=== PATIENT | female | born 1975 ===

== ENCOUNTER 2021-03-24 09:42 | Outpatient (REF) | payer OTHER, SELFPAY ==
[2021-03-24 10:30] LABS: MANUAL DIFF FLAG SCAN; SCAN SMEAR FLAG 1
[2021-03-24 10:32] LABS: Basophils Absolute Auto 0.1 X10*3/uL (0.0-0.2); Basophils Percent Auto 0.7 % (0-2); Eosinophils Absolute Auto 0.1 X10*3/uL (0.0-0.4); Eosinophils Percent Auto 0.7 % (0-4); Hematocrit 40.6 % (37-47); Hemoglobin 13.6 g/dl (12.0-16.0); Imm Gran Abs Auto 0.16 X10*3/uL (0.00-0.03); Imm Gran Pct Auto 1.6 % (0.0-0.4); Lymphocytes Absolute Auto 2.6 X10*3/uL (1.2-4.9); Lymphocytes Percent Auto 25.4 % (20-40); Mean Corpuscular HGB Conc 33.5 g/dl (31.0-35.0); Mean Corpuscular Hemoglobin 29.1 pg (27.0-33.0); Mean Corpuscular Volume 86.9 fL (80-98); Mean Platelet Volume 13.2 fL (9.4-12.3); Monocytes Absolute Auto 0.7 X10*3/uL (0.1-1.2); Monocytes Percent Auto 6.8 % (2-11); Neutrophils Absolute Auto 6.7 X10*3/uL (2.0-8.3); Neutrophils Percent Auto 64.8 % (45-73); Platelet Count 247 X10*3/uL (160-400); Red Blood Count 4.67 X10*6/uL (4.20-5.50); Red Cell Distribution Width 13.3 % (11.0-16.0); White Blood Count 10.3 X10*3/uL (4.8-10.8)
[2021-03-24 10:34] LABS: PLT ABN DIST 1
[2021-03-24 10:35] LABS: Alanine Aminotransferase 15 U/L (0-31); Albumin Level 4.3 g/dL (3.5-5.0); Alkaline Phosphatase 70 U/L (39-117); Anion Gap 12 (12-20); Aspartate Amino Transferase 12 U/L (5-31); Bilirubin Total 0.5 mg/dL (0.0-1.0); Blood Urea Nitrogen 11 mg/dL (9-16); Calcium 9.3 mg/dL (8.4-10.2); Carbon Dioxide 22 mmol/L (22-29); Chloride 107 mmol/L (96-108); Cholesterol 211 mg/dL; Estimated Glomerular Filt Rate > 60; Glucose Random 114 mg/dL (60-115); HDL Cholesterol 45 mg/dL; LDL Cholesterol Calculated 137 mg/dl; Potassium 4.4 mmol/L (3.3-5.1); Sodium 137 mmol/L (135-145); Total Protein 6.8 g/dL (6.5-8.0); Triglycerides 148 mg/dL
[2021-03-24 10:59] LABS: Free T4 (Free Thyroxine) 0.97 ng/dL (0.71-1.85); Thyroid Stimulating Hormone 1.09 uIU/mL (0.32-4.0); Vitamin D 25-OH Total 13.8 ng/mL (>30)
[2021-03-24 11:23] LABS: SLIDE REVIEW VERIFIED
[2021-03-26 04:26] LABS: Folate 13.5 ng/mL (> or = 4.0); Vitamin B12 220 pg/mL (200-900)
== END 2021-03-24 09:43 | disposition home or self-care (01) ==
LOC: HO.LAB 09:42
PROVIDERS: PCP Internal Medicine; Visit Provider Internal Medicine
DX: E78.00 Pure hypercholesterolemia, unspecified (principal)
CPT/HCPCS: 36415; 80053; 80061; 82306; 82607; 82746; 84439; 84443; 85025

== ENCOUNTER 2021-07-12 14:44 | Outpatient (REF) | payer OTHER, SELFPAY ==
--- NOTE | ~2021-07-12 | XR_ITS ---
EXAMINATION: XR FOOT, RIGHT CLINICAL INFORMATION: M79.89 - Other specified soft tissue disorders COMPARISON: None TECHNIQUE: AP, lateral, and oblique views of the right foot. FINDINGS: There is a small focal convexity to the dorsomedial soft tissues adjacent to the first metatarsal head. The area of convexity is under 1 cm. There is no soft tissue mineralization or visible soft tissue lesion on plain film. The underlying bone appears intact. There is no fracture or dislocation or exostosis. No focal joint narrowing or erosive changes. Bony mineralization appears normal. There are small posterior and plantar calcaneal spurs. XR/XR foot RT 2V IMPRESSION: 1. Small focal soft tissue convexity adjacent to dorsomedial first metatarsal head. No associated bony abnormality. No soft tissue mineralization. 2. Small posterior and plantar calcaneal spurs.
== END 2021-07-12 14:45 | disposition home or self-care (01) ==
LOC: HO.XRAY 14:44
PROVIDERS: PCP Internal Medicine; Visit Provider Internal Medicine
DX: M79.89 Other specified soft tissue disorders (principal)
CPT/HCPCS: 73620

== ENCOUNTER → 2021-09-03 09:05 | Outpatient (BNVA) | payer OTHER, SELFPAY | PROVIDERS: PCP Internal Medicine; Referring Provider Internal Medicine; Visit Provider Physician Assistant | DX: Z13.89 Encounter for screening for other disorder (principal) ==

== ENCOUNTER 2022-01-17 15:07 | Emergency (ER) | payer OTHER, SELFPAY ==
[2022-01-17 16:40] VITALS: BP 157/85; PULSE 100; RESP 18; TEMP 36.7; O2SAT 97; BMI 32.4
[2022-01-17 16:58] LABS: MANUAL DIFF FLAG NO
[2022-01-17 17:02] LABS: Basophils Absolute Auto 0.1 X10*3/uL (0.0-0.2); Basophils Percent Auto 0.5 % (0-2); Eosinophils Absolute Auto 0.1 X10*3/uL (0.0-0.4); Hematocrit 40.4 % (37.0-47.0); Hemoglobin 13.8 g/dl (12.0-16.0); Imm Gran Abs Auto 0.09 X10*3/uL (0.00-0.03); Imm Gran Pct Auto 0.8 % (0.0-0.4); Lymphocytes Percent Auto 26.8 % (20-40); Mean Corpuscular HGB Conc 34.2 g/dl (31.0-35.0); Mean Corpuscular Hemoglobin 29.2 pg (27.0-33.0); Mean Corpuscular Volume 85.6 fL (80.0-98.0); Mean Platelet Volume 12.7 fL (9.4-12.3); Monocytes Absolute Auto 0.7 X10*3/uL (0.1-1.2); Monocytes Percent Auto 6.5 % (2-11); Neutrophils Absolute Auto 7.1 x10*3/uL (2.0-8.3); Neutrophils Percent Auto 64.4 % (45-73); Platelet Count 273 X10*3/uL (160-400); Red Blood Count 4.72 X10*6/uL (4.20-5.50); Red Cell Distribution Width 13.4 % (11.0-16.0)
[2022-01-17 17:21] LABS: Anion Gap 14 (12-20); Blood Urea Nitrogen 7 mg/dL (9-16); Calcium 9.5 mg/dL (8.4-10.2); Carbon Dioxide 19 mmol/L (22-29); Chloride 108 mmol/L (96-108); Creatinine Clr Calc Pharmacy 83.8; Estimated Glomerular Filt Rate > 60; Glucose Random 188 mg/dL (60-115); Sodium 137 mmol/L (135-145)
== END 2022-01-17 22:26 | disposition left against medical advice (07) ==
LOC: HO.ED 22:18
PROVIDERS: Emergency Provider Emergency Medicine; PCP Internal Medicine
DX: M79.605 Pain in left leg (principal); M79.604 Pain in right leg; R60.0 Localized edema; R20.0 Anesthesia of skin; Z79.899 Other long term (current) drug therapy
CPT/HCPCS: 36415; 80048; 85025; 99281; 99283

== ENCOUNTER 2022-01-23 10:44 | Outpatient (REF) | payer OTHER, SELFPAY ==
--- NOTE | ~2022-01-23 | XR_ITS ---
EXAMINATION: XR HIP, LEFT CLINICAL INFORMATION: Pain in left hip. COMPARISON: None TECHNIQUE: Two views of the left hip. FINDINGS: No fracture, dislocation, or destructive process. Normal bony mineralization. No joint narrowing or erosive change or chondrocalcinosis. SI joint and pubis are unremarkable. There is minor lateral spurring from the iliac crest. Soft tissue planes unremarkable. XR/XR hip LT min 2V IMPRESSION: Normal left hip.
== END 2022-01-23 10:45 | disposition home or self-care (01) ==
LOC: HO.XRAY 10:44
PROVIDERS: PCP Internal Medicine; Visit Provider Internal Medicine
DX: M25.552 Pain in left hip (principal)
CPT/HCPCS: 73502

== ENCOUNTER 2022-01-26 08:51 | Outpatient (REF) | payer OTHER, SELFPAY ==
[2022-01-26 09:24] LABS: Appearance Urine CLEAR; Color Urine STRAW; Glucose Urine UA NEG (NEG); Leukocyte Esterase Urine NEG (NEG); Nitrite Urine NEG (NEG); PH 5.5 (5.0-8.0); Urine Blood NEG (NEG); Urine Ketones NEG (NEG); Urine Protein NEG (NEG-TRACE)
[2022-01-26 09:32] LABS: Alanine Aminotransferase 44 U/L (0-31); Albumin Level 4.5 g/dL (3.5-5.0); Alkaline Phosphatase 70 U/L (39-117); Anion Gap 16 (12-20); Aspartate Amino Transferase 28 U/L (5-31); Bilirubin Total 0.5 mg/dL (0.0-1.0); Blood Urea Nitrogen 10 mg/dL (9-16); Calcium 9.6 mg/dL (8.4-10.2); Carbon Dioxide 22 mmol/L (22-29); Chloride 106 mmol/L (96-108); Cholesterol 272 mg/dL; Estimated Glomerular Filt Rate > 60; Glucose Random 99 mg/dL (60-115); HDL Cholesterol 51 mg/dL; LDL Cholesterol Calculated 199 mg/dl; Sodium 139 mmol/L (135-145); Total Protein 7.5 g/dL (6.5-8.0); Triglycerides 110 mg/dL
[2022-01-26 09:54] LABS: Free T4 (Free Thyroxine) 0.98 ng/dL (0.71-1.85); Thyroid Stimulating Hormone 0.81 uIU/mL (0.32-4.0)
[2022-01-28 08:26] LABS: Folate 10.6 ng/mL (> or = 4.0); Vitamin B12 762 pg/mL (200-900)
== END 2022-01-26 08:52 | disposition home or self-care (01) ==
LOC: HO.LAB 08:51
PROVIDERS: PCP Internal Medicine; Visit Provider Internal Medicine
DX: M25.552 Pain in left hip (principal); E78.00 Pure hypercholesterolemia, unspecified
CPT/HCPCS: 36415; 80053; 80061; 81003; 82607; 82746; 84439; 84443

== ENCOUNTER → 2022-02-11 13:02 | Outpatient (REF) | payer OTHER, SELFPAY ==
--- NOTE | 2022-02-11 13:07 | ECG_ITS ---
Test Reason : palpitations Blood Pressure : / mmHG Vent. Rate : 077 BPM Atrial Rate : 077 BPM P-R Int : 130 ms QRS Dur : 086 ms QT Int : 392 ms P-R-T Axes : 043 053 020 degrees QTc Int : 443 ms Normal sinus rhythm Minimal voltage criteria for LVH, may be normal variant ( Sokolow-Hui ) Nonspecific ST abnormality Abnormal ECG No previous ECGs available Referred By: Bj Mane Electronically Signed By:DARLENE DURHAM
== END ==
LOC: HO.CARD 13:02
PROVIDERS: PCP Internal Medicine; Visit Provider Internal Medicine
DX: R00.2 Palpitations (principal)
CPT/HCPCS: 93005

== ENCOUNTER 2022-02-20 13:45 | Outpatient (REF) | payer OTHER, SELFPAY ==
--- NOTE | ~2022-02-20 | US_ITS ---
EXAMINATION: US EXTRACRANIAL CAROTID DUPLEX, BILATERAL CLINICAL INFORMATION: Transient cerebral ischemic attack. Hypertension. Hyperlipidemia. COMPARISON: None TECHNIQUE: Real-time ultrasound and Doppler techniques (integrating B-mode 2-D vascular images, Doppler spectral analysis and color-flow Doppler imaging) were utilized to interrogate the extracranial carotid arteries, the vertebral arteries and proximal subclavian arteries bilaterally. The degree of stenosis is determined by criteria similar to NASCET. FINDINGS: Right Side: 1. There is no atherosclerotic plaque seen in the bifurcation/proximal ICA region. 2. The common carotid artery PSV proximally is 91 cm/s and distally 78 cm/s. 3. The proximal internal carotid artery velocities are 77 cm/s systolic and 19 cm/s diastolic. 4. The proximal external carotid artery PSV is 84 cm/s. 5. The vertebral artery shows antegrade flow. 6. The subclavian artery waveforms are normal. Left Side: 1. There is no atherosclerotic plaque seen in the bifurcation/proximal ICA region. 2. The common carotid artery PSV proximally is 103 cm/s and distally 84 cm/s. 3. The proximal internal carotid artery velocities are 69 cm/s systolic and 22 cm/s diastolic. 4. The proximal external carotid artery PSV is 85 cm/s. 5. The vertebral artery shows antegrade flow. 6. The subclavian artery waveforms are normal. US/US carotid duplex BI IMPRESSION: 1. RIGHT: Normal right internal carotid artery without atherosclerotic plaque or hemodynamically significant stenosis. 2. LEFT: Normal left internal carotid artery without atherosclerotic plaque or hemodynamically significant stenosis.
== END 2022-02-20 13:46 | disposition home or self-care (01) ==
LOC: HO.HMGCX 13:45
PROVIDERS: PCP Internal Medicine; Visit Provider Internal Medicine
DX: G45.9 Transient cerebral ischemic attack, unspecified (principal)
CPT/HCPCS: 93880

== ENCOUNTER 2022-03-22 07:29 | Day surgery (SDC) | payer OTHER, SELFPAY ==
[2022-03-18 15:10] VITALS: BMI 32.4
--- NOTE | 2022-03-21 10:58 | HO.ANESPROP2 ---
Documented by User: Cecy Yin NP 03/21/22 11:02 HPI - Anesthesia Eval Consult details Narrative: 47yo F for Colonoscopy PMFSH Active Problems Active Problems: All Active Problems (Updated 03/18/22 @ 15:07 by Carmen Fischer RN) Obesity (BMI 30-39.9) (Acute) Constipation (Acute) Colon cancer screening (Acute) Impaired glucose tolerance (Acute) Vitamin B12 deficiency (Acute) Vitamin D deficiency (Acute) Swelling of toe of right foot (Acute) Hip pain, left (Acute) Frequency of micturition (Acute) Migraine (Acute) LFT elevation (Acute) Hypertension (Acute) Reactive airway disease (Acute) Hypercholesterolemia (Acute) Endometriosis (Acute) Past Medical History Medical History (Updated 03/18/22 @ 15:07 by Carmen Fischer RN) Annual physical exam Blood pressure elevated without history of HTN COVID-19 virus infection Endometriosis Hypercholesterolemia Palpitations Reactive airway disease TIA (transient ischemic attack) Family History Family History Mother No problems noted. Father No problems noted. Sister No problems noted. Sister No problems noted. Sister No problems noted. Sister No problems noted. Brother No problems noted. Son No problems noted. Son No problems noted. Daughter No problems noted. Paternal Grandmother Myocardial infarct Paternal Aunt Colon cancer Breast cancer Paternal Uncle Substance abuse Surgical History Surgical History H/O tubal ligation History of ear surgery History of tonsillectomy Social History Social History Housing: House Alcohol intake: current Alcohol intake frequency: holidays/special occasions only Patient Tobacco Use Status: Never used Tobacco e-Cigarette/Vaping Use: Never Used Second Hand Smoke Exposure: No Use of substances other than those prescribed or required for medical reasons: No Are you DNR?: No Advance Directives: No Advance Directives Information Provided: Yes service: No Current occupational status: employed Cognitive needs: No Hearing needs: No Vision needs: Yes Meds Allergies Allergy/AdvReac Type Severity Reaction Status Date / Time Bleach (Sodium Hypochlorite) Allergy Severe Anaphylaxis Verified 03/13/22 11:05 latex Allergy Intermediate Rash Verified 03/13/22 11:05 peanut Allergy Intermediate Rash Verified 03/13/22 11:05 Home Medications Medication Instructions Recorded Confirmed Last Taken Type norethindrone acetate 1.5 1 tab PO DAILY 03/15/21 03/18/22 Unknown History mg-ethinyl estradiol 30 mcg tablet (Junel) cholecalciferol (vitamin D3) 50 50 mcg PO DAILY 09/03/21 03/18/22 Unknown History mcg (2,000 unit) capsule mecobalamin (vitamin B12) 5,000 5,000 mcg PO DAILY 09/03/21 03/18/22 Unknown History mcg lozenge ropinirole 0.25 mg tablet 0.25 mg PO BEDTIME 03/13/22 03/18/22 Unknown History sumatriptan succinate 50 mg tablet 50 mg PO Q2-4H PRN Migraine 03/13/22 03/18/22 Unknown History Headache Exam Exam Date and Time: March 21, 2022 1058 Height,Weight and Vital Signs: Height 5 ft Weight 75.296 kg Pertinent Lab Results Pertinent Lab Results: Laboratory Tests 01/17/22 01/26/22 16:54 08:59 WBC 11.0 H Hgb 13.8 Hct 40.4 Plt Count 273 Sodium 139 Potassium 5.0 D Chloride 106 Carbon Dioxide 22 BUN 10 Creatinine 0.72 Assessment and Plan Assessment Anesthesia Assessment: Chart Reviewed Documented by User: Bekah Lea MD 03/22/22 08:27 [facility] Past Medical History Medical History (Updated 03/18/22 @ 15:07 by Carmen Fischer RN) Annual physical exam Blood pressure elevated without history of HTN COVID-19 virus infection Endometriosis Hypercholesterolemia Palpitations Reactive airway disease TIA (transient ischemic attack) Family History Family History Mother No problems noted. Father No problems noted. Sister No problems noted. Sister No problems noted. Sister No problems noted. Sister No problems noted. Brother No problems noted. Son No problems noted. Son No problems noted. Daughter No problems noted. Paternal Grandmother Myocardial infarct Paternal Aunt Colon cancer Breast cancer Paternal Uncle Substance abuse Family history of problems with anesthesia: No Surgical History Surgical History H/O tubal ligation History of ear surgery History of tonsillectomy History of Problems with Anesthesia: No Social History Social History Housing: House Alcohol intake: current Alcohol intake frequency: holidays/special occasions only Patient Tobacco Use Status: Never used Tobacco e-Cigarette/Vaping Use: Never Used Second Hand Smoke Exposure: No Use of substances other than those prescribed or required for medical reasons: No Are you DNR?: No Advance Directives: No Advance Directives Information Provided: Yes service: No Current occupational status: employed Cognitive needs: No Hearing needs: No Vision needs: Yes Meds Allergies Allergy/AdvReac Type Severity Reaction Status Date / Time Bleach (Sodium Hypochlorite) Allergy Severe Anaphylaxis Verified 03/13/22 11:05 latex Allergy Intermediate Rash Verified 03/13/22 11:05 peanut Allergy Intermediate Rash Verified 03/13/22 11:05 Home Medications Medication Instructions Recorded Confirmed Last Taken Type norethindrone acetate 1.5 1 tab PO DAILY 03/15/21 03/18/22 Unknown History mg-ethinyl estradiol 30 mcg tablet (Junel) cholecalciferol (vitamin D3) 50 50 mcg PO DAILY 09/03/21 03/18/22 Unknown History mcg (2,000 unit) capsule mecobalamin (vitamin B12) 5,000 5,000 mcg PO DAILY 09/03/21 03/18/22 Unknown History mcg lozenge ropinirole 0.25 mg tablet 0.25 mg PO BEDTIME 03/13/22 03/18/22 Unknown History sumatriptan succinate 50 mg tablet 50 mg PO Q2-4H PRN Migraine 03/13/22 03/18/22 Unknown History Headache Exam Airway Mallampati Class: III TM Dist: >3cm Neck ROM: Full Heart: rrr Lungs: cta Assessment and Plan Assessment Anesthesia Assessment: Anesthesia Plan Discussed and Chart Reviewed Final Anesthetic Review Family History of Problems with Anesthesia: No History of Problems with Anesthesia: No NPO: Yes ASA Class: II Final Preanesthetic Review: No Changes in Pt Med Stat, Meds/Allgs Chart Reviewed and Consent Obtained/Reviewed Patient Risk: Intermediate Procedure Risk: Intermediate Anesthetic Plan Anesthetic Plan: MAC: Disposition: Standard PACU
--- NOTE | 2022-03-22 07:22 | MHC.SHP ---
Pre-Procedural Eval Section A Date of Service: 03/22/22 The patient is an INPATIENT: No The History & Physical has been completed within 30 days and I have reviewed it.: No Section B Chief Complaint: screening Details of Present Illness: Colon cancer screen, family history of colon cancer Relevant Family History (Specify if Yes): Yes Relevant Social History: None Present Medications: see Short Stay Collaborative assessment Medical History: Significant History (COVID-19 virus infection Endometriosis Hypercholesterolemia Reactive airway disease) History of Previous Operations: Relevant previous surgery/procedure and date(s) (H/O tubal ligation History of ear surgery History of tonsillectomy) Allergies: Allergies Allergy/AdvReac Type Severity Reaction Status Date / Time Bleach (Sodium Hypochlorite) Allergy Severe Anaphylaxis Verified 03/13/22 11:05 latex Allergy Intermediate Rash Verified 03/13/22 11:05 peanut Allergy Intermediate Rash Verified 03/13/22 11:05 Review of Systems Sugical H&P ROS: Negative: Constitution, Cardiovascular, Respiratory and Gastrointestinal Exam Surgical H&P Exam: Normal: Heart, Normal: Lungs, Normal: Extremities and Normal: Abdomen Plan Diagnosis/Plan: Unchanged I have reviewed the history and physical and performed a pertinent physical examination on my patient. No changes have occurred unless specified.
[2022-03-22 07:50] VITALS: BP 150/78; PULSE 63; RESP 16; TEMP 36.3; O2SAT 98
[2022-03-22] MEDS: Lactated Ringers 1,000 ML 100 ML IVCONT (07:57)
--- NOTE | 2022-03-22 08:33 | PM.OP ---
Brief Operative Note Date of Service: 03/22/22 Pre-op diagnosis: Colon cancer screening, family history of colon cancer - maternal aunt in her 50s Post-op diagnosis: other (Colon polyps, diverticulosis) Procedure: COLONOSCOPY TILL CECUM WITH BIOPSIES AND SNARE POLYPECTOMY Consent: Indications for the procedure and potential complications of bleeding, perforation, reaction to medications and missed diagnosis were discussed with the patient and informed consent was obtained. Instrument: Olympus PCF H 190 L variable stiffness pediatric colonoscope Monitoring: Vital signs and clinical assessment, intermittent blood pressure monitoring, continuous EKG monitoring, Pulse oximetry and Carbon Dioxide monitoring were done throughout the procedure. Colon withdrawl time was 13 minutes. Procedure: The patient was placed in the left lateral decubitis position and pre-procedure medications were administered. After a digital rectal examination of the ano-rectum, the video colonoscope was inserted into the rectum and advanced through the colon to the cecum. The colonoscope was slowly withdrawn in a retrograde panoramic fashion and the colon mucosa was carefully examined including a retroflexed view of the rectum. Findings and interventions are described below. Procedure Difficulty: Without difficulty Findings: Terminal Ileum: Not evaluated Cecum: Normal Ascending Colon: A 7-8 mm sessile polyp in the proximal AC - removed with an cold snare Transverse Colon: A 4-5 mm sessile polyp in the proximal TC removed with a cold bx. Descending Colon: Normal Sigmoid Colon: Moderate diverticulosis Rectum: Normal Ano-rectum: Normal Colon preparation: Good Impression and Post Procedure Diagnosis: Colonoscopy Findings: Two small polyps removed Moderate diverticulosis seen in the sigmoid colon Plan: Pt will be sent a letter with pathology results Repeat Colonoscopy interval based on path results - in 5 years if polyps are adenomatous and 10 years if polyps are hyperplastic. Above findings were reviewed with the patient and colon polyps and diverticulosis handouts were given in the discharge area Surgeon: Sailaja Kennedy MD Anesthesia: MAC (Dr Tobin) Was an Information Security Associate used for this Procedure?: No Information Security Associate: Caitlin Khanna Estimated blood loss (mL): 0 Pathology: other ( A. ascending colon polyp B. right colon bxs, R/O microscopic colitis C. transverse colon polyp D. left colon bxs, R/O microscopic colitis) Condition: stable Disposition: PACU
[2022-03-22 09:00] VITALS: BP 111/56; PULSE 63; RESP 16; TEMP 36.2; O2SAT 99
--- NOTE | 2022-03-22 09:02 | P.OP_ITS ---
Operative Note Operative Note Date of Service: 03/22/22 Narrative: Pre-op diagnosis: Colon cancer screening, family history of colon cancer - maternal aunt in her 50s Post-op diagnosis:?other (Colon polyps, diverticulosis) Procedure: COLONOSCOPY TILL CECUM WITH BIOPSIES AND SNARE POLYPECTOMY Consent: Indications for the procedure and potential complications of bleeding, perforation, reaction to medications and missed diagnosis were discussed with the patient and informed consent was obtained. Instrument: Olympus PCF H 190 L variable stiffness pediatric colonoscope Monitoring: Vital signs and clinical assessment, intermittent blood pressure monitoring, continuous EKG monitoring, Pulse oximetry and Carbon Dioxide monitoring were done throughout the procedure. Colon withdrawl time was 13 minutes. Procedure: The patient was placed in the left lateral decubitis position and pre-procedure medications were administered. After a digital rectal examination of the ano-rectum, the video colonoscope was inserted into the rectum and advanced through the colon to the cecum. The colonoscope was slowly withdrawn in a retrograde panoramic fashion and the colon mucosa was carefully examined including a retroflexed view of the rectum. Findings and interventions are described below. Procedure Difficulty: Without difficulty Findings: Terminal Ileum: Not evaluated Cecum:? Normal Ascending Colon:? A 7-8 mm sessile polyp in the proximal AC - removed with an cold snare Transverse Colon:? A 4-5 mm sessile polyp in the proximal TC removed with a cold bx. Descending Colon:? Normal Sigmoid Colon:? Moderate diverticulosis Rectum:? Normal Ano-rectum:? Normal Colon preparation:? Good? Impression and Post Procedure Diagnosis: Colonoscopy Findings: Two small polyps removed Moderate diverticulosis seen in the sigmoid colon Plan: Pt will be sent a letter with pathology results Repeat Colonoscopy interval based on path results - in 5 years if polyps are adenomatous and due to family hx of colon cancer.. Above findings were reviewed with the patient and colon polyps and diverticulosis handouts were given in the discharge area Surgeon: Sailaja Kennedy MD Anesthesia:?MAC (Dr Tobin) Was an Vehicle Glass Technician used for this Procedure?:?No Vehicle Glass Technician:?Caitlin Khanna Estimated blood loss (mL):?0 Pathology:?other ( A. ascending colon polyp? B. right colon bxs, R/O microscopic colitis? C. transverse colon polyp? D. left colon bxs, R/O microscopic colitis) Condition:?stable Disposition:?PACU
[2022-03-22 09:15] VITALS: BP 119/74; PULSE 67; RESP 16; TEMP 36.2; O2SAT 100
== END 2022-03-22 09:15 | disposition home or self-care (01) ==
PROVIDERS: PCP Internal Medicine; Visit Provider Internal Medicine Gastroenterology
PROC: 0DJD8ZZ Inspection of Lower Intestinal Tract, Via Natural or Artificial Opening Endoscopic (ICD-10-PCS; CPT 45378; principal; 2022-03-22 08:30)
DX: Z12.11 Encounter for screening for malignant neoplasm of colon (principal); D12.3 Benign neoplasm of transverse colon; K63.5 Polyp of colon; K57.30 Diverticulosis of large intestine without perforation or abscess without bleeding; R19.7 Diarrhea, unspecified; E78.00 Pure hypercholesterolemia, unspecified; Z79.899 Other long term (current) drug therapy; J45.998 Other asthma; Z91.048 Other nonmedicinal substance allergy status; Z91.040 Latex allergy status; Z86.16 Personal history of COVID-19
CPT/HCPCS: 45385; 45380; 88305

== ENCOUNTER 2022-06-29 09:50 | Outpatient (REF) | payer OTHER, SELFPAY ==
[2022-06-29 11:35] LABS: Alanine Aminotransferase 31 U/L (0-31); Albumin Level 4.4 g/dL (3.5-5.0); Alkaline Phosphatase 82 U/L (39-117); Anion Gap 14 (12-20); Aspartate Amino Transferase 21 U/L (5-31); Bilirubin Total 0.5 mg/dL (0.0-1.0); Blood Urea Nitrogen 15 mg/dL (9-16); Calcium 9.5 mg/dL (8.4-10.2); Carbon Dioxide 24 mmol/L (22-29); Chloride 108 mmol/L (96-108); Cholesterol 240 mg/dL; Estimated Glomerular Filt Rate > 60; Glucose Random 109 mg/dL (60-115); HDL Cholesterol 43 mg/dL; LDL Cholesterol Calculated 181 mg/dl; Potassium 4.8 mmol/L (3.3-5.1); Sodium 141 mmol/L (135-145); Total Protein 7.1 g/dL (6.5-8.0); Triglycerides 82 mg/dL
[2022-07-01 09:35] LABS: HBS Num1 89.48 mIU/mL (0-7.99); HBsAGNum1 0.46 S/CO (0.00-0.99); Hepatitis B Core Antibody Nonreactive (Nonreactive); Hepatitis B Surface Antigen Negative (Negative); ~HepC Num1 0.06 S/CO (0.00-0.79); ~Hepatitis B Surface Antibody REACTIVE (Nonreactive); ~Hepatitis C Antibody Nonreactive (Nonreactive)
== END 2022-06-29 09:51 | disposition home or self-care (01) ==
LOC: HO.LAB 09:50
PROVIDERS: Visit Provider Internal Medicine
DX: E78.00 Pure hypercholesterolemia, unspecified (principal); R79.89 Other specified abnormal findings of blood chemistry
CPT/HCPCS: 36415; 80053; 80061; 86704; 86706; 86803; 87340

== ENCOUNTER 2022-11-04 11:43 | Outpatient (REF) | payer OTHER, SELFPAY ==
[2022-11-04 13:03] LABS: Appearance Urine Cloudy; Color Urine Yellow; Glucose Urine UA Negative (Negative); Leukocyte Esterase Urine Large (3+) (Negative); Nitrite Urine Negative (Negative); PH 6.5 (5.0-9.0); UMIC TRIGGER UACC YES; Urine Blood Large (3+) (Negative); Urine Ketones Negative (Negative); Urine Protein Trace mg/dL (Neg-Trace)
[2022-11-04 13:07] LABS: Bacteria Urine Trace (None Seen); Hyaline Casts Urine 0-2 /LPF (0-2); RBC Urine >20 /HPF (0-2); UACC Culture Trigger YES; WBC Urine >50 /HPF (0-5)
== END 2022-11-04 11:44 | disposition home or self-care (01) ==
LOC: HO.LAB 11:43
PROVIDERS: PCP Internal Medicine; Visit Provider Internal Medicine
DX: R82.90 Unspecified abnormal findings in urine (principal)
CPT/HCPCS: 81001; 81003; 87086

== ENCOUNTER 2022-11-13 09:08 | Outpatient (REF) | payer OTHER, SELFPAY ==
[2022-11-13 09:31] LABS: MANUAL DIFF FLAG NO
[2022-11-13 09:47] LABS: Basophils Absolute Auto 0.1 X10*3/uL (0.0-0.2); Basophils Percent Auto 1.2 % (0-2); Eosinophils Absolute Auto 0.2 X10*3/uL (0.0-0.4); Eosinophils Percent Auto 1.6 % (0-4); Imm Gran Abs Auto 0.11 X10*3/uL (0.00-0.03); Imm Gran Pct Auto 1.2 % (0.0-0.4); Immature Retic Fraction 9.3 % (3.0-15.9); Lymphocytes Absolute Auto 2.5 X10*3/uL (1.2-4.9); Lymphocytes Percent Auto 26.6 % (20-40); Mean Corpuscular HGB Conc 33.3 g/dl (31.0-35.0); Mean Corpuscular Hemoglobin 29.2 pg (27.0-33.0); Mean Corpuscular Volume 87.5 fL (80.0-98.0); Mean Platelet Volume 12.7 fL (9.4-12.3); Monocytes Absolute Auto 0.8 X10*3/uL (0.1-1.2); Monocytes Percent Auto 8.3 % (2-11); Neutrophils Absolute Auto 5.7 x10*3/uL (2.0-8.3); Neutrophils Percent Auto 61.1 % (45-73); Platelet Count 254 X10*3/uL (160-400); Red Cell Distribution Width 13.1 % (11.0-16.0); Retic HGB Equivalent 33.8 pg (30.0-35.0); Reticulocyte Percent 2.1 % (0.5-1.8); Reticulocytes Absolute 0.101 X10*6/uL (0.026-0.095); White Blood Count 9.4 X10*3/uL (4.8-10.8)
[2022-11-13 10:33] LABS: Alanine Aminotransferase 58 U/L (0-31); Albumin Level 4.4 g/dL (3.5-5.0); Alkaline Phosphatase 95 U/L (39-117); Anion Gap 14 (12-20); Aspartate Amino Transferase 28 U/L (5-31); Bilirubin Total 0.7 mg/dL (0.0-1.0); Blood Urea Nitrogen 9 mg/dL (9-16); Calcium 9.8 mg/dL (8.4-10.2); Carbon Dioxide 23 mmol/L (22-29); Chloride 105 mmol/L (96-108); Estimated Glomerular Filt Rate > 60; Glucose Random 120 mg/dL (60-115); Iron 129 mcg/dL (30-160); Percent Iron Saturation 40 % (15-50); Sodium 137 mmol/L (135-145); Total Iron Binding Capacity 326 mcg/dL (228-428); Total Protein 7.3 g/dL (6.5-8.0); Unsaturated Iron Binding 197 ug/dL
[2022-11-13 11:05] LABS: Ferritin 191 ng/mL (10-250); Folate 12.1 ng/mL (> or = 4.0); Vitamin B12 532 pg/mL (200-900)
== END 2022-11-13 09:09 | disposition home or self-care (01) ==
LOC: HO.LAB 09:08
PROVIDERS: PCP Internal Medicine; Visit Provider Internal Medicine
DX: D64.9 Anemia, unspecified (principal); Z90.710 Acquired absence of both cervix and uterus
CPT/HCPCS: 36415; 80053; 82607; 82728; 82746; 83540; 85025; 85045

== ENCOUNTER 2022-12-17 11:59 | Outpatient (REF) | payer OTHER, SELFPAY ==
[2022-12-17 13:05] LABS: MANUAL DIFF FLAG SCAN; SCAN SMEAR FLAG 1
[2022-12-17 13:07] LABS: Basophils Absolute Auto 0.1 X10*3/uL (0.0-0.2); Basophils Percent Auto 0.8 % (0-2); Eosinophils Absolute Auto 0.1 X10*3/uL (0.0-0.4); Eosinophils Percent Auto 1.4 % (0-4); Hematocrit 45.1 % (37.0-47.0); Hemoglobin 15.1 g/dl (12.0-16.0); Imm Gran Abs Auto 0.05 X10*3/uL (0.00-0.03); Imm Gran Pct Auto 0.5 % (0.0-0.4); Lymphocytes Absolute Auto 2.8 X10*3/uL (1.2-4.9); Lymphocytes Percent Auto 29.6 % (20-40); Mean Corpuscular HGB Conc 33.5 g/dl (31.0-35.0); Mean Corpuscular Hemoglobin 28.7 pg (27.0-33.0); Mean Corpuscular Volume 85.6 fL (80.0-98.0); Mean Platelet Volume 13.3 fL (9.4-12.3); Monocytes Absolute Auto 0.8 X10*3/uL (0.1-1.2); Neutrophils Absolute Auto 5.7 x10*3/uL (2.0-8.3); Neutrophils Percent Auto 59.7 % (45-73); PLT ABN DIST 1; Platelet Count 246 X10*3/uL (160-400); Red Blood Count 5.27 X10*6/uL (4.20-5.50); Red Cell Distribution Width 12.9 % (11.0-16.0); White Blood Count 9.5 X10*3/uL (4.8-10.8)
[2022-12-17 13:09] LABS: Prothrombin Time 11.6 SEC (10.0-13.1)
[2022-12-17 13:35] LABS: SLIDE REVIEW VERIFIED
== END 2022-12-17 12:00 | disposition home or self-care (01) ==
LOC: HO.LAB 11:59
PROVIDERS: Nurse Practitioner Family; PCP Internal Medicine; Visit Provider Internal Medicine
DX: N93.9 Abnormal uterine and vaginal bleeding, unspecified (principal); Z90.710 Acquired absence of both cervix and uterus
CPT/HCPCS: 36415; 85025; 85610

== ENCOUNTER 2023-01-27 12:10 | Outpatient (AMB) | payer OTHER, SELFPAY ==
--- NOTE | 2023-01-27 12:29 | MHC.OFFWIV ---
Intake Vital Signs 01/27/23 12:33 Height 5 ft BP 130/72 Blood Pressure Location Lt brachial Position Sitting Pulse 86 Pulse Source Pulse Oximeter Temp 97 F Temp Source Temporal Artery Scan Pulse Oximetry (%) 97 Oxygen Delivery Method Room Air Intake Visit Reasons: EST/post hysterectomy pain Intake Note: Pt is here c/o abdominal pain. Pt states she had a hysterectomy in October of 2022. Pt states she was moving things in office last week and thats when she started having abdominal pain. Pt states she feels pressure as if she is always sitting on something. Patient Tobacco Use Status: Never used Tobacco Allergies Bleach (Sodium Hypochlorite) Allergy (Severe, Verified 01/27/23 13:18) Anaphylaxis latex Allergy (Intermediate, Verified 01/27/23 13:18) Rash peanut Allergy (Intermediate, Verified 01/27/23 13:18) Rash Medication List - Last Reconciled 01/27/23 by Jesus Garcia MD No Known Home Meds Do you need a note to return to daycare/school/sports/work: Yes HPI EST/post hysterectomy pain HPI Details 47-year-old female presents to the office for a sick visit. Patient is complaining of abdominal pain for the past 3 days. She was constipated for a few days and has tried an enema. Patient continues to have discomfort in the lower abdomen. [facility] Medical History Annual physical exam Blood pressure elevated without history of HTN COVID-19 virus infection Endometriosis Hypercholesterolemia Palpitations Reactive airway disease TIA (transient ischemic attack) Surgical History H/O tubal ligation History of ear surgery History of tonsillectomy Family History Mother No problems noted. Father No problems noted. Sister No problems noted. Sister No problems noted. Sister No problems noted. Sister No problems noted. Brother No problems noted. Son No problems noted. Son No problems noted. Daughter No problems noted. Paternal Grandmother Myocardial infarct Paternal Aunt Colon cancer Breast cancer Paternal Uncle Substance abuse Social History Housing: House Alcohol intake: current Alcohol intake frequency: holidays/special occasions only Patient Tobacco Use Status: Never used Tobacco e-Cigarette/Vaping Use: Never Used Second Hand Smoke Exposure: No service: No Current occupational status: employed Cognitive needs: No Hearing needs: No Vision needs: Yes Physical Exam Vital Signs: Last Vital Signs Temp 97 F 01/27/23 12:33 Pulse 86 01/27/23 12:33 BP 130/72 01/27/23 12:33 Pulse Ox 97 01/27/23 12:33 Oxygen Delivery Method Room Air 01/27/23 12:33 Const General: cooperative and healthy appearing Nutritional Appearance: well nourished Orientation/consciousness: patient oriented x3 Limitations: no limitations HEENT Head: Yes normal to inspection Eyes General: appearance normal, both eyes and all related structures Neck Neck: Yes normal visual inspection Chest Chest palpation & inspection: normal palpation of entire chest wall Resp Effort & Inspection: normal respiratory effort GI Other: Bowel sounds are well heard. Nonspecific discomfort. Neuro General: patient oriented x3 Assessment & Plan Assessment & Plan (1) Abdominal pain: Code(s): R10.9 - Unspecified abdominal pain Plan: Cipro started. If symptoms do not improve to follow-up here. Coding Level of Care Code Est Pt Level 3 (16221) Diagnoses Abdominal pain R10.9
[2023-01-27 12:33] VITALS: BP 130/72; PULSE 86; TEMP 36.1; O2SAT 97
== END 2023-01-27 13:44 | disposition home or self-care (01) ==
PROVIDERS: PCP Internal Medicine; Visit Provider Internal Medicine
DX: R10.9 Unspecified abdominal pain (principal)
CPT/HCPCS: 99213

== ENCOUNTER 2023-07-08 15:59 | Outpatient (AMB) | payer OTHER, SELFPAY ==
--- NOTE | 2023-07-08 16:14 | MHC.PC.OV ---
Vital Signs 07/08/23 16:15 Height 5 ft Weight 166 lb 0.6 oz BMI 32.4 BP 142/96 H Blood Pressure Location Lt brachial Position Sitting Pulse 88 Pulse Source Pulse Oximeter Pulse Oximetry (%) 97 Oxygen Delivery Method Room Air Intake Visit Reasons: physical Button Inspector Required: No Allergies Bleach (Sodium Hypochlorite) Allergy (Severe, Verified 01/27/23 13:18) Anaphylaxis latex Allergy (Intermediate, Verified 01/27/23 13:18) Rash peanut Allergy (Intermediate, Verified 01/27/23 13:18) Rash Medication List - Last Reconciled 07/08/23 by Bj Mane MD albuterol sulfate 90 mcg/actuation (ProAir HFA) 2 puffs inhalation QID docusate sodium (Colace) 100 mg PO DAILY propranolol ER 60 mg PO BEDTIME Tobacco use date assessed: 07/08/23 Dental Screening Dental Screen Date: 07/08/23 Did you have a dental visit in the last 12 months?: No Did you have a dental problem in the last 6 months where you did not have access to dental care?: No HPI physical HPI Details 48-year-old obese female with hypertension coming in for physical exam last seen in November 2022. Patient's colonoscopy is up-to-date February 2022 5 years mammogram is due. Noted ER visit in January for back injury lower back pain was given naproxen. Noted last blood work in October 2022 to have an elevated blood cholesterol as well as sugar. sleepy occ at home , naps afternoon , sleepy after meal, sleep at times watching tv [facility] Medical History (Updated 07/08/23 @ 16:57 by Bj Mane MD) Abdominal pain Annual physical exam Colon cancer screening Palpitations TIA (transient ischemic attack) Blood pressure elevated without history of HTN Endometriosis Hypercholesterolemia Reactive airway disease COVID-19 virus infection Surgical History History of ear surgery H/O tubal ligation History of tonsillectomy Family History (Updated 07/08/23 @ 16:47 by Bj Mane MD) Mother No problems noted. Father No problems noted. Sister No problems noted. Sister No problems noted. Sister No problems noted. Sister No problems noted. Brother No problems noted. Son No problems noted. Son No problems noted. Daughter No problems noted. Paternal Grandmother Myocardial infarct Paternal Aunt Colon cancer Breast cancer Paternal Uncle Substance abuse Myocardial infarct Social History (Updated 07/08/23 @ 16:48 by Bj Mane MD) Housing: House Alcohol intake: current Alcohol intake frequency: holidays/special occasions only Comment: holidays 2-3 drinks Patient Tobacco Use Status: Never used Tobacco e-Cigarette/Vaping Use: Never Used Second Hand Smoke Exposure: No service: No Current occupational status: employed Cognitive needs: No Hearing needs: No Vision needs: Yes Questionnaire Thrive Questionnaire Date Thrive assessed: 07/08/23 I am a: Patient What is your living situation today?: I have a steady place to live Within the past 12 months, did the food you bought not last and you didn't have the money to get more?: Never true Within the past 12 months, did you worry whether your food would run out before you got money to buy more?: Never true Do you have trouble paying for medicines?: No Do you have trouble getting transportation to medical appointments?: No Do you have trouble paying your heating and electricity bill?: No Do you have trouble taking care of your child, family member or friend?: No Do you have trouble with day-to-day activities such as bathing, preparing meals, shopping, managing finances, etc.?: No Are you currently unemployed and looking for a job?: No Are you interested in more education?: No AUDIT C Alcohol Use Questionnaire (AUDIT-C) 1. How often do you have a drink containing alcohol?: Monthly or less 2. How many drinks containing alcohol do you have on a typical day when you are drinking?: 1 or 2 3. How often do you have six or more drinks on one occasion?: Never Total Score: 1 PINKY-7 AMB Questionnaire PINKY-7 Date PINKY - 7 assessed: 07/08/23 Feeling nervous, anxious, or on edge: 1 = Several days Not being able to stop or control worryin = Several days Worrying too much about different things: 1 = Several days Trouble relaxin = Several days Being so restless that it is hard to sit still: 0 = Not at all Becoming easily annoyed or irritable: 0 = Not at all Feeling afraid as if something awful might happen: 0 = Not at all Total PINKY-7 score (0-4 normal; 5-9 mild; 10-14 moderate; 15-21 severe): 4 Source: Developed by Drs. Chandu Root, Mckayla Escobar, Osbaldo Jiang and colleagues, with an educational waleska from [employer]. Review of Systems Const Denies poor appetite and Denies weakness Eyes Denies no additional complaints ENT Reports Normal hearing present, Denies dizziness, Denies nasal congestion, Denies tinnitus and Denies sore throat Card Denies chest pain, Denies syncope, Denies rapid heart rate and Denies dyspnea Resp Denies cough and Denies dyspnea GI Denies change in stool character, Reports constipation, Denies diarrhea, Denies nausea and Denies vomiting Denies urinary frequency, Denies difficulty voiding and Denies dysuria Neuro Reports Normal hearing present, Denies confusion, Denies dizziness, Denies syncope and Denies weakness Psych Denies confusion Physical exam (Primary Care) Vital Signs: Last Vital Signs Pulse 88 07/08/23 16:15 BP 142/96 H 07/08/23 16:15 Pulse Ox 97 07/08/23 16:15 Oxygen Delivery Method Room Air 07/08/23 16:15 BMI result Body Mass Index 32.4 Tobacco/Smoking Status: Tobacco use Status Tobacco use date assessed 07/08/23 07/08/23 16:19 Patient Tobacco Use Status Never used Tobacco 07/08/23 16:17 e-Cigarette/Vaping Use Never Used 07/08/23 16:17 Thrive Assessment: Date of Thrive Assessment Date Thrive assessed 07/08/23 07/08/23 16:19 Const General: alert and awake; No confusion Orientation/consciousness: No confusion HENMT Head: Yes normocephalic Ears: external ears normal and TM's normal bilaterally Face and sinus: Yes normal facial exam Mouth: moist mucous membranes Throat: Yes tonsils normal Eyes Conjunctivae: conjunctivae normal Pupils: Equal, round and reactive pupils present and Pupil accommodation reflex normal Direct Ophthalmoscopy: normal light reflex Neck Neck: No lymphadenopathy Thyroid: Thyroid normal Chest Chest palpation & inspection: normal inspection of the chest Resp Effort & Inspection: normal respiratory effort and no audible wheezes Auscultation: clear to auscultation bilaterally, no crackles, no wheezes and lung sounds not diminished Cardio Rate: regular rate Rhythm: regular rhythm Peripheral pulses: radial pulses present and dorsalis pedis present GI Palpation (GI): no masses Auscultation: normal bowel sounds and normoactive bowel sounds Rectal Exam - Female: deferred Skin General skin exam: no rashes or lesions noted Rashes: no rashes Neuro General: deep tendon reflexes 2+ bilaterally and No confusion Cranial nerves: Yes Equal, round and reactive pupils present, Yes Midline tongue present, Yes Normal hearing present and Yes Ability to bilaterally elevate shoulders present Cognition (Neuro): normal cognition Gait exam (Neuro): Normal gait present Motor exam (neuro): 5/5 motor strength present throughout Deep tendon reflexes (DTR's): Right brachioradialis reflex intensity grade: 2+, Left brachioradialis reflex intensity grade: 2+, Right patellar reflex intensity grade: 2+ and Left patellar reflex intensity grade: 2+ Extrem General: No edema Assessment and Plan Assessment & Plan (1) Annual physical exam: Code(s): Z00.00 - Encounter for general adult medical examination without abnormal findings (2) Obesity (BMI 30-39.9): Code(s): E66.9 - Obesity, unspecified Plan: Diet and exercise (3) Impaired glucose tolerance: Code(s): R73.02 - Impaired glucose tolerance (oral) Plan: Decrease the amount of carbohydrate intake, pasta, bread, rice and potatoes are all sugar and that is aside from all the sweet stuff, remember that fruits are good but they are Sweet also. (4) Hypertension: Code(s): I10 - Essential (primary) hypertension Plan: Patient presently not on any medication (5) Hypercholesterolemia: Code(s): E78.00 - Pure hypercholesterolemia, unspecified Plan: Avoid fried foods, chicken skin, eggs, butter margarine, pastries and meat. Be it pork or beef they have a lot of cholesterol LDL goal of less than 130 and triglyceride of less than 150. (6) Reactive airway disease: Comment: Reaction with chemical (bleach)- No recent issue-occasional inhaler Code(s): J45.909 - Unspecified asthma, uncomplicated (7) Hypersomnia: Code(s): G47.10 - Hypersomnia, unspecified (8) Breast cancer screening by mammogram: Code(s): Z12.31 - Encounter for screening mammogram for malignant neoplasm of breast Orders: Orders Complete Blood Count Auto Diff Today E78.00 - Pure hypercholesterolemia, unspecified Thyroid Stimulating Hormone Today E78.00 - Pure hypercholesterolemia, unspecified Vitamin B12 and Folate Today E78.00 - Pure hypercholesterolemia, unspecified Vitamin D 25-OH Total Today E78.00 - Pure hypercholesterolemia, unspecified Hemoglobin A1c Today R73.02 - Impaired glucose tolerance (oral) Comprehensive Met. Panel Today E78.00 - Pure hypercholesterolemia, unspecified Free T4 (Free Thyroxine) Today E78.00 - Pure hypercholesterolemia, unspecified Lipid Panel Today E78.00 - Pure hypercholesterolemia, unspecified RT home sleep study Today G47.10 - Hypersomnia, unspecified MM tomosynthesis screening BI Today Z12.31 - Encounter for screening mammogram for malignant neoplasm of breast Medications: Refilled propranolol ER 60 mg PO BEDTIME 90 caps 3RF I10 - Essential (primary) hypertension albuterol sulfate 90 mcg/actuation (ProAir HFA) 2 puffs inhalation QID 8.5 grams 0RF J45.909 - Unspecified asthma, uncomplicated Coding Level of Care Code Est Pt Prev Care 40-64y(61743) Diagnoses Annual physical exam Z00.00 Obesity (BMI 30-39.9) E66.9 Impaired glucose tolerance R73.02 Hypertension I10 Hypercholesterolemia E78.00 Reactive airway disease J45.909 Hypersomnia G47.10 Breast cancer screening by mammogram Z12.31
[2023-07-08 16:15] VITALS: BP 142/96; PULSE 88; O2SAT 97; BMI 32.4
== END 2023-07-08 17:02 | disposition home or self-care (01) ==
PROVIDERS: Visit Provider Internal Medicine
DX: Z00.00 Encounter for general adult medical examination without abnormal findings (principal); E66.9 Obesity, unspecified; Z68.32 Body mass index [BMI] 32.0-32.9, adult; R73.02 Impaired glucose tolerance (oral); I10 Essential (primary) hypertension; E78.00 Pure hypercholesterolemia, unspecified; J45.909 Unspecified asthma, uncomplicated; G47.10 Hypersomnia, unspecified
CPT/HCPCS: 99396

== ENCOUNTER → 2023-09-03 09:01 | Outpatient (REF) | payer OTHER, SELFPAY ==
[2023-09-03 09:51] LABS: MANUAL DIFF FLAG NO
[2023-09-03 10:25] LABS: Basophils Absolute Auto 0.1 X10*3/uL (0.0-0.2); Basophils Percent Auto 0.7 % (0-2); Eosinophils Absolute Auto 0.1 X10*3/uL (0.0-0.4); Eosinophils Percent Auto 1.5 % (0-4); Hematocrit 40.5 % (37.0-47.0); Hemoglobin 13.7 g/dl (12.0-16.0); Imm Gran Abs Auto 0.05 X10*3/uL (0.00-0.03); Imm Gran Pct Auto 0.6 % (0.0-0.4); Lymphocytes Absolute Auto 2.4 X10*3/uL (1.2-4.9); Lymphocytes Percent Auto 29.9 % (20-40); Mean Corpuscular HGB Conc 33.8 g/dl (31.0-35.0); Mean Corpuscular Hemoglobin 29.1 pg (27.0-33.0); Mean Corpuscular Volume 86.2 fL (80.0-98.0); Monocytes Absolute Auto 0.6 X10*3/uL (0.1-1.2); Monocytes Percent Auto 7.4 % (2-11); Neutrophils Absolute Auto 4.8 x10*3/uL (2.0-8.3); Neutrophils Percent Auto 59.9 % (45-73); Platelet Count 235 X10*3/uL (160-400); Red Cell Distribution Width 13.2 % (11.0-16.0); White Blood Count 8.1 X10*3/uL (4.8-10.8)
[2023-09-03 11:06] LABS: Alanine Aminotransferase 25 U/L (0-31); Albumin Level 4.1 g/dL (3.5-5.0); Alkaline Phosphatase 94 U/L (39-117); Anion Gap 11 (12-20); Aspartate Amino Transferase 18 U/L (5-31); Bilirubin Total 0.5 mg/dL (0.0-1.0); Blood Urea Nitrogen 13 mg/dL (9-16); Calcium 9.5 mg/dL (8.4-10.2); Carbon Dioxide 24 mmol/L (22-29); Chloride 107 mmol/L (96-108); Cholesterol 218 mg/dL (<200); Estimated Glomerular Filt Rate > 60; Glucose Random 110 mg/dL (60-115); HDL Cholesterol 46 mg/dL (>40); LDL Cholesterol Calculated 145 mg/dL (<100); Potassium 4.2 mmol/L (3.3-5.1); Sodium 138 mmol/L (135-145); Total Protein 7.2 g/dL (6.5-8.0); Triglycerides 138 mg/dL (<150)
[2023-09-03 11:08] LABS: Free T4 (Free Thyroxine) 0.99 ng/dL (0.71-1.85); Thyroid Stimulating Hormone 0.81 uIU/mL (0.32-4.0); Vitamin D 25-OH Total 14.8 ng/mL (>30)
[2023-09-03 11:17] LABS: Folate 8.5 ng/mL (> or = 4.0); Vitamin B12 454 pg/mL (200-900)
[2023-09-03 11:24] LABS: Appearance Urine Clear; Color Urine Yellow; Glucose Urine UA Negative (Negative); Leukocyte Esterase Urine Negative (Negative); Nitrite Urine Negative (Negative); Urine Blood Negative (Negative); Urine Ketones Negative (Negative); Urine Protein Negative (Neg-Trace)
[2023-09-03 15:08] LABS: Estimated Average Glucose 114 mg/dL; Hemoglobin A1c % 5.6 % (<6.0)
== END ==
LOC: HO.SL 09:01
PROVIDERS: PCP Internal Medicine; Visit Provider Internal Medicine
DX: Z12.31 Encounter for screening mammogram for malignant neoplasm of breast (principal); G47.10 Hypersomnia, unspecified; R06.83 Snoring; E78.00 Pure hypercholesterolemia, unspecified; R73.02 Impaired glucose tolerance (oral); R39.9 Unspecified symptoms and signs involving the genitourinary system
CPT/HCPCS: 36415; 77063; 77067; 80053; 80061; 81003; 82306; 82607; 82746; 83036; 84439; 84443; 85025; 95806

== ENCOUNTER → 2023-09-03 09:30 | Outpatient (BNV) | payer OTHER, SELFPAY | PROVIDERS: PCP Internal Medicine; Visit Provider Radiology Diagnostic Radiology | DX: Z12.31 Encounter for screening mammogram for malignant neoplasm of breast (principal) | CPT/HCPCS: 77063; 77067 ==

== ENCOUNTER → 2023-09-03 10:58 | Outpatient (BNV) | payer OTHER, SELFPAY | PROVIDERS: PCP Internal Medicine; Visit Provider Internal Medicine | DX: R06.83 Snoring (principal) | CPT/HCPCS: 95806 ==

== ENCOUNTER 2023-10-13 15:39 | Outpatient (AMB) | payer OTHER, SELFPAY ==
[2023-10-13 15:52] VITALS: BP 146/80; PULSE 77; O2SAT 98; BMI 32.4
--- NOTE | 2023-10-13 15:52 | MHC.PC.OV ---
Vital Signs 10/13/23 15:52 Height 5 ft Weight 166 lb BMI 32.4 BP 146/80 H Blood Pressure Location Lt brachial Position Sitting Pulse 77 Pulse Source Pulse Oximeter Pulse Oximetry (%) 98 Oxygen Delivery Method Room Air Intake Visit Reasons: ED fu 4 abdomen pain, IGT, Chol Solar Systems Designer Required: No Designated Broker: Not Required per policy Accompanied by: Self / Same As Patient Allergies Bleach (Sodium Hypochlorite) Allergy (Severe, Verified 10/13/23 15:52) Anaphylaxis latex Allergy (Intermediate, Verified 10/13/23 15:52) Rash peanut Allergy (Intermediate, Verified 10/13/23 15:52) Rash Tobacco use date assessed: 07/08/23 Dental Screening Dental Screen Date: 07/08/23 HPI ED fu 4 abdomen pain, IGT, Chol HPI Details 70-year-old obese female smoker with multiple medical problems. Status post TAVR atrial fibrillation diabetes mellitus atherosclerotic cardiac disease coming in for follow-up last seen in July 2023. Patient had colonoscopy in 2017, bone density and mammogram are due. Echocardiogram done August 2023 Normal LV ejection fraction of 60 65% with moderate to severe left ventricular hypertrophy with elevated filling pressures 2. Mildly dilated left atrium 3. Normally functioning bioprosthetic aortic valve with mean gradient of 5 mmHg 4. Upper limits of normal ascending aortic size 5. No gross pericardial effusion . 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 [facility] Medical History (Updated 10/13/23 @ 17:12 by Bj Mane MD) Breast cancer screening by mammogram Abdominal pain Annual physical exam Colon cancer screening Palpitations TIA (transient ischemic attack) Blood pressure elevated without history of HTN Endometriosis Hypercholesterolemia Reactive airway disease COVID-19 virus infection Surgical History History of ear surgery H/O tubal ligation History of tonsillectomy Family History (Updated 10/13/23 @ 15:53 by ANGELIKA Peralta) Mother No problems noted. Father No problems noted. Sister No problems noted. Sister No problems noted. Sister No problems noted. Sister No problems noted. Brother No problems noted. Son No problems noted. Son No problems noted. Daughter No problems noted. Paternal Grandmother Myocardial infarct Paternal Aunt Colon cancer Breast cancer Paternal Uncle Substance abuse Myocardial infarct Social History (Updated 07/08/23 @ 16:48 by Bj Mane MD) Housing: House Alcohol intake: current Alcohol intake frequency: holidays/special occasions only Comment: holidays 2-3 drinks Patient Tobacco Use Status: Never used Tobacco e-Cigarette/Vaping Use: Never Used Second Hand Smoke Exposure: No service: No Current occupational status: employed Cognitive needs: No Hearing needs: No Vision needs: Yes Questionnaire PHQ-9 Over the last 2 weeks, how often have you been bothered by any of the following problems? 1. Little interest or pleasure in doing things: nearly every day 2. Feeling down, depressed, or hopeless: nearly every day 3. Trouble falling or staying asleep, or sleeping too much: nearly every day 4. Feeling tired or having little energy: nearly every day 5. Poor appetite or overeating: more than half the days 6. Feeling bad about yourself - or that you are a failure or have let yourself or your family down: nearly every day 7. Trouble concentrating on things, such as reading the newspaper or watching television: nearly every day 8. Moving or speaking so slowly that other people could have noticed. Or the opposite - being so fidgety or restless that you have been moving around a lot more than usual: nearly every day 9. Thoughts that you would be better off or of hurting yourself in some way: not at all Total score: 23 Depression Screening Interpretation: Negative Depression Screening Done: Yes 14027 - PHQ-9 Billing: Yes Source: Developed by Drs. Chandu Root, Mckayla Escobar, Osbaldo Jiang and colleagues, with an educational waleska from [employer]. Thrive Questionnaire Date Thrive assessed: 07/08/23 PINKY-7 AMB Questionnaire PINKY-7 Date PINKY - 7 assessed: 07/08/23 Source: Developed by Drs. Chandu Root, Mckayla Escobar, Osbaldo Jiang and colleagues, with an educational waleska from [employer]. Physical exam (Primary Care) Vital Signs: Last Vital Signs Pulse 77 10/13/23 15:52 BP 146/80 H 10/13/23 15:52 Pulse Ox 98 10/13/23 15:52 Oxygen Delivery Method Room Air 10/13/23 15:52 BMI result Body Mass Index 32.4 Tobacco/Smoking Status: Tobacco use Status Tobacco use date assessed 07/08/23 10/13/23 15:54 Patient Tobacco Use Status Never used Tobacco 10/13/23 15:54 e-Cigarette/Vaping Use Never Used 10/13/23 15:54 PHQ-9: PHQ-9 Score PHQ-9: Total score 23 10/13/23 17:12 Depression Screening Interpretation: Negative Thrive Assessment: Date of Thrive Assessment Date Thrive assessed 07/08/23 10/13/23 15:54 Const General: alert; No acute distress Eyes Conjunctivae: conjunctivae normal Resp Auscultation: clear to auscultation bilaterally Cardio Rate: regular rate Rhythm: regular rhythm GI Inspection: Yes normal to inspection Extrem General: Yes normal to inspection and No edema Assessment and Plan Assessment & Plan (1) Obesity (BMI 30-39.9): Code(s): E66.9 - Obesity, unspecified Plan: Diet and exercise (2) Impaired glucose tolerance: Code(s): R73.02 - Impaired glucose tolerance (oral) Plan: Decrease the amount of carbohydrate intake, pasta, bread, rice and potatoes are all sugar and that is aside from all the sweet stuff, remember that fruits are good but they are Sweet also. (3) Hypercholesterolemia: Code(s): E78.00 - Pure hypercholesterolemia, unspecified Plan: Avoid fried foods, chicken skin, eggs, butter margarine, pastries and meat. Be it pork or beef they have a lot of cholesterol LDL goal of less than 130 and triglyceride of less than 150. (4) Constipation: Code(s): K59.00 - Constipation, unspecified Plan: Three rules for constipation 1. Diet need to have a high fiber diet less of meat 2. Increase oral fluids 3. Exercise Coding Level of Care Code Est Pt Level 4 (31216) Diagnoses Obesity (BMI 30-39.9) E66.9 Impaired glucose tolerance R73.02 Hypercholesterolemia E78.00 Constipation K59.00
== END 2023-10-13 17:52 | disposition home or self-care (01) ==
PROVIDERS: PCP Internal Medicine; Visit Provider Internal Medicine
DX: E78.00 Pure hypercholesterolemia, unspecified (principal); R73.02 Impaired glucose tolerance (oral); K59.00 Constipation, unspecified
CPT/HCPCS: 99214

== ENCOUNTER 2024-02-26 12:39 | Outpatient (AMB) | payer OTHER, SELFPAY ==
[2024-02-26 12:54] VITALS: BP 132/90; PULSE 90; TEMP 36.9; O2SAT 98; BMI 32.8
--- NOTE | 2024-02-26 12:54 | AM.OFFWIN_ITS ---
Intake Vital Signs 02/26/24 12:54 Height 5 ft Weight 168 lb BMI 32.8 BP 132/90 H Blood Pressure Location Lt brachial Position Sitting Pulse 90 Pulse Source Pulse Oximeter Temp 98.4 F Temp Source Oral Pulse Oximetry (%) 98 Oxygen Delivery Method Room Air Intake Visit Reasons: EP congestion, cough, sore throat Intake Note: Pt c/o congestion, cough and sore throat. Started Friday Patient Tobacco Use Status: Never used Tobacco Allergies Bleach (Sodium Hypochlorite) Allergy (Severe, Verified 02/26/24 13:00) Anaphylaxis latex Allergy (Intermediate, Verified 02/26/24 13:00) Rash peanut Allergy (Intermediate, Verified 02/26/24 13:00) Rash Do you need a note to return to daycare/school/sports/work: Yes HPI HPI Comments History of Present Illness Details Patient is a 48-year-old female complaining 4 days of a runny nose, sneezing, cough, body aches and head congestion with sinus pain. She also has chills but denies a fever that she measured. She denies any chest pain or shortness of breath. She has been taking Mucinex and ibuprofen without much relief. [facility] Medical History (Updated 10/13/23 @ 17:12 by Bj Mane MD) Breast cancer screening by mammogram Abdominal pain Annual physical exam Colon cancer screening Palpitations TIA (transient ischemic attack) Blood pressure elevated without history of HTN Endometriosis Hypercholesterolemia Reactive airway disease COVID-19 virus infection Surgical History History of ear surgery H/O tubal ligation History of tonsillectomy Family History (Updated 10/13/23 @ 15:53 by ANGELIKA Peralta) Mother No problems noted. Father No problems noted. Sister No problems noted. Sister No problems noted. Sister No problems noted. Sister No problems noted. Brother No problems noted. Son No problems noted. Son No problems noted. Daughter No problems noted. Paternal Grandmother Myocardial infarct Paternal Aunt Colon cancer Breast cancer Paternal Uncle Substance abuse Myocardial infarct Social History (Updated 07/08/23 @ 16:48 by Bj Mane MD) Housing: House Alcohol intake: current Alcohol intake frequency: holidays/special occasions only Comment: holidays 2-3 drinks Patient Tobacco Use Status: Never used Tobacco e-Cigarette/Vaping Use: Never Used Second Hand Smoke Exposure: No service: No Current occupational status: employed Cognitive needs: No Hearing needs: No Vision needs: Yes Review of Systems Const All systems reviewed & are unremarkable except as noted in HPI and below Physical Exam Vital Signs: Last Vital Signs Temp 98.4 F 02/26/24 12:54 Pulse 90 02/26/24 12:54 BP 132/90 H 02/26/24 12:54 Pulse Ox 98 02/26/24 12:54 Oxygen Delivery Method Room Air 02/26/24 12:54 BMI result Body Mass Index 32.8 Const General: cooperative, healthy appearing, comfortable and no acute distress Orientation/consciousness: patient oriented x3 Limitations: no limitations HEENT Head: Yes normal to inspection Ears: hearing grossly normal bilaterally, external ears normal and TM's normal bilaterally General nose exam: Normal external nose present, Normal nares present and No nasal discharge present Face and sinus: Yes normal facial exam and Yes sinuses nontender Mouth: Normal oral and palatal mucosa present and moist mucous membranes Throat: Yes tonsils normal, Yes uvula midline and Yes posterior oropharynx abnormal (Erythema) Eyes General: appearance normal, both eyes and all related structures Neck Neck: Yes normal visual inspection Resp Effort & Inspection: normal respiratory effort, able to speak in complete sentences, Actively coughing, no respiratory distress, not tachypneic, no tripod positioning and no use of accessory muscles Auscultation: clear to auscultation bilaterally Skin General skin exam: no rashes or lesions noted Neuro General: patient oriented x3 Extrem General: Yes no clubbing, cyanosis or edema Results AMB Rapid Strep AMB Rapid Strep Negative Last Edit by Fredi Teresa CMA on 02/26/24 13:21 Assessment & Plan Assessment & Plan (1) URI (upper respiratory infection): Code(s): J06.9 - Acute upper respiratory infection, unspecified Qualifiers: URI type: unspecified URI Qualified Code(s): J06.9 - Acute upper respiratory infection, unspecified Plan: Rapid strep negative in office, sent flu COVID and RSV. Recommended symptomatic relief with [id number] medications such as Neti pot with distilled water, Flonase or saline nasal spray as this is likely sinusitis Plan See above Orders: Orders SARS-CoV2/FLU/RSV Today J06.9 - Acute upper respiratory infection, unspecified AMB Rapid Strep Screen Today Z13.9 - Encounter for screening, unspecified Coding Level of Care Code Est Pt Level 3 (39757) Diagnoses Upper respiratory tract infection, unspecified type J06.9 URI type: unspecified URI
== END 2024-02-26 13:32 | disposition home or self-care (01) ==
PROVIDERS: PCP Internal Medicine; Visit Provider Registered Nurse
DX: J06.9 Acute upper respiratory infection, unspecified (principal); Z13.9 Encounter for screening, unspecified
CPT/HCPCS: 87880; 99213

== ENCOUNTER 2024-02-26 13:19 | Outpatient (REF) | payer OTHER, SELFPAY ==
[2024-02-26 18:44] LABS: Influenza A PCR NEGATIVE (Negative); Influenza B PCR NEGATIVE (Negative); Resp Syncy Virus RNA Qual PCR NEGATIVE (Negative); SARS COV2 PCR INHOUSE POSITIVE (Negative)
== END 2024-02-26 13:20 | disposition home or self-care (01) ==
LOC: HO.LAB 13:19
PROVIDERS: Visit Provider Registered Nurse
DX: J06.9 Acute upper respiratory infection, unspecified (principal)
CPT/HCPCS: 0241U

== ENCOUNTER 2024-04-01 13:31 | Outpatient (AMB) | payer OTHER, SELFPAY ==
--- NOTE | 2024-04-01 13:32 | MHC.PC.OV ---
Vital Signs 04/01/24 13:33 Height 5 ft Weight 169 lb 4 oz BMI 33.1 BP 120/70 Blood Pressure Location Lt brachial Position Sitting Pulse 68 Pulse Source Pulse Oximeter Pulse Oximetry (%) 98 Oxygen Delivery Method Room Air Intake Visit Reasons: annual exam Intake Note: Patient is here today for a physical. 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 Health Care Consultant: Not Required per policy Accompanied by: Self / Same As Patient Allergies Bleach (Sodium Hypochlorite) Allergy (Severe, Verified 04/01/24 13:33) Anaphylaxis latex Allergy (Intermediate, Verified 04/01/24 13:33) Rash peanut Allergy (Intermediate, Verified 04/01/24 13:33) Rash Medication List - Last Reconciled 04/01/24 by Bj Mane MD albuterol sulfate 90 mcg/actuation (ProAir HFA) 2 puffs inhalation QID cholecalciferol (vitamin D3) 50 mcg PO DAILY docusate sodium (Colace) 100 mg PO DAILY propranolol ER 60 mg PO BEDTIME Tobacco use date assessed: 04/01/24 Dental Screening Dental Screen Date: 07/08/23 HPI annual exam HPI Details 49-year-old obese female with impaired glucose tolerance hypercholesterolemia and constipation last seen in September 2023. Patient is here for physical exam. Mammogram is up-to-date colonoscopy is up-to-date 2021. Recent Urgent Care Center visit February 25 for sore throat and congestion positive for COVID [facility] Medical History (Updated 04/01/24 @ 14:13 by Bj Mane MD) Breast cancer screening by mammogram Abdominal pain Annual physical exam Colon cancer screening Palpitations TIA (transient ischemic attack) Blood pressure elevated without history of HTN Endometriosis Hypercholesterolemia Reactive airway disease COVID-19 virus infection Surgical History (Updated 04/01/24 @ 13:58 by Bj Mane MD) H/O hysterectomy for benign disease History of ear surgery H/O tubal ligation History of tonsillectomy Family History Mother No problems noted. Father No problems noted. Sister No problems noted. Sister No problems noted. Sister No problems noted. Sister No problems noted. Brother No problems noted. Son No problems noted. Son No problems noted. Daughter No problems noted. Paternal Grandmother Myocardial infarct Paternal Aunt Colon cancer Breast cancer Paternal Uncle Substance abuse Myocardial infarct Social History (Updated 04/01/24 @ 13:59 by Bj Mane MD) Housing: House Alcohol intake: current Alcohol intake frequency: holidays/special occasions only Comment: holidays 2-3 drinks 2 days weekend 1-2 drinks Patient Tobacco Use Status: Never used Tobacco e-Cigarette/Vaping Use: Never Used Second Hand Smoke Exposure: No service: No Current occupational status: employed Cognitive needs: No Hearing needs: No Vision needs: Yes (glasses) Questionnaire Thrive Questionnaire Date Thrive assessed: 07/08/23 I am a: Patient What is your living situation today?: I choose not to answer this question Within the past 12 months, did the food you bought not last and you didn't have the money to get more?: I choose not to answer this question Within the past 12 months, did you worry whether your food would run out before you got money to buy more?: I choose not to answer this question Do you have trouble paying for medicines?: I choose not to answer this question Do you have trouble getting transportation to medical appointments?: I choose not to answer this question Do you have trouble paying your heating and electricity bill?: I choose not to answer this question Do you have trouble taking care of your child, family member or friend?: I choose not to answer this question Do you have trouble with day-to-day activities such as bathing, preparing meals, shopping, managing finances, etc.?: I choose not to answer this question Are you currently unemployed and looking for a job?: I choose not to answer this question Are you interested in more education?: I choose not to answer this question Please select the resources that you would like help with: None Currently or been in a relationship where the following occur: I choose not to answer THRIVE Score: 0 AUDIT C Alcohol Use Questionnaire (AUDIT-C) 1. How often do you have a drink containing alcohol?: Never Total Score: 0 PINKY-7 AMB Questionnaire PINKY-7 Date PINKY - 7 assessed: 07/08/23 Feeling nervous, anxious, or on edge: 0 = Not at all Not being able to stop or control worryin = Not at all Worrying too much about different things: 0 = Not at all Trouble relaxin = Not at all Being so restless that it is hard to sit still: 0 = Not at all Becoming easily annoyed or irritable: 0 = Not at all Feeling afraid as if something awful might happen: 0 = Not at all Total PINKY-7 score (0-4 normal; 5-9 mild; 10-14 moderate; 15-21 severe): 0 Source: Developed by Drs. Chandu Root, Mckayla Escoabr, Osbaldo Jiang and colleagues, with an educational waleska from [employer]. Review of Systems Const Denies poor appetite and Denies weakness Eyes Denies no additional complaints ENT Reports Normal hearing present, Denies dizziness, Denies nasal congestion, Denies tinnitus and Denies sore throat Card Denies chest pain, Denies syncope, Denies rapid heart rate and Denies dyspnea Resp Denies cough and Denies dyspnea GI Denies change in stool character, Reports constipation, Denies diarrhea, Denies nausea and Denies vomiting Denies urinary frequency, Denies difficulty voiding and Denies dysuria Neuro Reports Normal hearing present, Denies confusion, Denies dizziness, Denies syncope and Denies weakness Psych Denies confusion Physical exam (Primary Care) Vital Signs: Last Vital Signs Pulse 68 04/01/24 13:33 BP 120/70 04/01/24 13:33 Pulse Ox 98 04/01/24 13:33 Oxygen Delivery Method Room Air 04/01/24 13:33 BMI result Body Mass Index 33.1 Tobacco/Smoking Status: Tobacco use Status Tobacco use date assessed 04/01/24 04/01/24 13:38 Patient Tobacco Use Status Never used Tobacco 04/01/24 13:38 e-Cigarette/Vaping Use Never Used 04/01/24 13:38 Thrive Assessment: Date of Thrive Assessment Date Thrive assessed 07/08/23 04/01/24 13:38 Currently or been in a relationship where the following occur: I choose not to answer Const General: alert and awake; No confusion Orientation/consciousness: No confusion HENMT Head: Yes normocephalic Ears: external ears normal and TM's normal bilaterally Face and sinus: Yes normal facial exam Mouth: moist mucous membranes Throat: Yes tonsils normal Eyes Conjunctivae: conjunctivae normal Pupils: Equal, round and reactive pupils present and Pupil accommodation reflex normal Direct Ophthalmoscopy: normal light reflex Neck Neck: No lymphadenopathy Thyroid: Thyroid normal Chest Chest palpation & inspection: normal inspection of the chest Resp Effort & Inspection: normal respiratory effort and no audible wheezes Auscultation: clear to auscultation bilaterally, no crackles, no wheezes and lung sounds not diminished Cardio Rate: regular rate Rhythm: regular rhythm Peripheral pulses: radial pulses present and dorsalis pedis present GI Palpation (GI): no masses Auscultation: normal bowel sounds and normoactive bowel sounds Rectal Exam - Female: deferred Skin General skin exam: no rashes or lesions noted Rashes: no rashes Neuro General: deep tendon reflexes 2+ bilaterally and No confusion Cranial nerves: Yes Equal, round and reactive pupils present, Yes Midline tongue present, Yes Normal hearing present and Yes Ability to bilaterally elevate shoulders present Cognition (Neuro): normal cognition Gait exam (Neuro): Normal gait present Motor exam (neuro): 5/5 motor strength present throughout Deep tendon reflexes (DTR's): Right brachioradialis reflex intensity grade: 2+, Left brachioradialis reflex intensity grade: 2+, Right patellar reflex intensity grade: 2+ and Left patellar reflex intensity grade: 2+ Extrem General: No edema Office Procedures Flu Questionnaire Does the patient have a severe egg allergy?: No Does the patient have severe life threatening allergies?: No Does the patient have a fever or illness today?: No Has the patient ever had Guillain-Hancock Syndrome?: No Has the patient ever had any past reaction to a flu shot?: No Immunizations Fluarix Triv 9960-0007 (PF) 45 mcg (15 mcg x 3)/0.5 mL IM syringe Performing Provider: Bj Mane MD [facility] Administered by: Jovana Easton RN on 04/01/24 13:41 Dose Route Admin Location Dispensed Lot Number Expiration Date NDC [employer] 0.5 mL IM Left Deltoid 0.5 mL [id number] 12/20/24 [id number] Hello Agent VIS Given Date VIS Provided VIS Publication Date 04/01/24 Single Vaccine 21 Eligibility Eligibility Date Funding Source Not [facility] Eligible 04/01/24 Private Coding Level of Care Code Est Pt Prev Care 40-64y(19538) Diagnoses Annual physical exam Z00.00 Obesity (BMI 30-39.9) E66.9 Impaired glucose tolerance R73.02 Migraine without status migrainosus, not intractable, unspecified migraine type G43.909 Status migrainosus presence: without status migrainosus Intractability: not intractable Migraine type: unspecified Primary hypertension I10 Hypertension type: primary hypertension Hypercholesterolemia E78.00 Irritable bowel syndrome with both constipation and diarrhea K58.2 Irritable bowel syndrome type: with both diarrhea and constipation Malar rash R21 Assessment & Plan Assessment & Plan (1) Annual physical exam: Code(s): Z00.00 - Encounter for general adult medical examination without abnormal findings Category: Medical Plan: Patient is advised to eat healthy, keep well hydrated, keep active and have adequate sleep. (2) Obesity (BMI 30-39.9): Code(s): E66.9 - Obesity, unspecified Category: Medical Plan: Diet and exercise (3) Impaired glucose tolerance: Code(s): R73.02 - Impaired glucose tolerance (oral) Category: Medical Plan: Decrease the amount of carbohydrate intake, pasta, bread, rice and potatoes are all sugar and that is aside from all the sweet stuff, remember that fruits are good but they are Sweet also. (4) Migraine: Code(s): G43.909 - Migraine, unspecified, not intractable, without status migrainosus Category: Medical Qualifiers: Status migrainosus presence: without status migrainosus Intractability: not intractable Migraine type: unspecified Qualified Code(s): G43.909 - Migraine, unspecified, not intractable, without status migrainosus Plan: Keep active and exercise, keep well hydrated (5) Hypertension: Code(s): I10 - Essential (primary) hypertension Category: Medical Qualifiers: Hypertension type: primary hypertension Qualified Code(s): I10 - Essential (primary) hypertension Plan: Continue with blood pressure medication. Decrease salt intake and exercise (6) Hypercholesterolemia: Code(s): E78.00 - Pure hypercholesterolemia, unspecified Category: Medical Plan: Avoid fried foods, chicken skin, eggs, butter margarine, pastries and meat. Be it pork or beef they have a lot of cholesterol LDL goal of less than 130 and triglyceride of less than 150. (7) IBS (irritable bowel syndrome): Code(s): K58.9 - Irritable bowel syndrome, unspecified Category: Medical Qualifiers: Irritable bowel syndrome type: with both diarrhea and constipation Qualified Code(s): K58.2 - Mixed irritable bowel syndrome Plan: will work up firsgt (8) Malar rash: Code(s): R21 - Rash and other nonspecific skin eruption Category: Medical Plan: will try to work up Orders: Orders Complete Blood Count Auto Diff Today K58.9 - Irritable bowel syndrome, unspecified Thyroid Stimulating Hormone Today K58.9 - Irritable bowel syndrome, unspecified Lipid Panel Today E78.00 - Pure hypercholesterolemia, unspecified, K58.9 - Irritable bowel syndrome, unspecified Vitamin B12 and Folate Today K58.9 - Irritable bowel syndrome, unspecified Vitamin D 25-OH Total Today K58.9 - Irritable bowel syndrome, unspecified Influenza [id number] Immunization Today Z23 - Encounter for immunization Comprehensive Met. Panel Today K58.9 - Irritable bowel syndrome, unspecified Free T4 (Free Thyroxine) Today K58.9 - Irritable bowel syndrome, unspecified Hemoglobin A1c Today K58.9 - Irritable bowel syndrome, unspecified UA w Microscopic Today K58.9 - Irritable bowel syndrome, unspecified Medications: Refilled propranolol ER 60 mg PO BEDTIME 90 caps 3RF I10 - Essential (primary) hypertension
[2024-04-01 13:33] VITALS: BP 120/70; PULSE 68; O2SAT 98; BMI 33.1
== END 2024-04-01 14:17 | disposition home or self-care (01) ==
PROVIDERS: PCP Internal Medicine; Visit Provider Internal Medicine
DX: Z00.00 Encounter for general adult medical examination without abnormal findings (principal); R73.02 Impaired glucose tolerance (oral); E66.811 Obesity, class 1; Z68.33 Body mass index [BMI] 33.0-33.9, adult; G43.909 Migraine, unspecified, not intractable, without status migrainosus; I10 Essential (primary) hypertension; E78.00 Pure hypercholesterolemia, unspecified; K58.2 Mixed irritable bowel syndrome; R21 Rash and other nonspecific skin eruption

== ENCOUNTER → 2024-04-01 13:31 | Outpatient (BNVA) | payer OTHER, SELFPAY | PROVIDERS: PCP Internal Medicine; Visit Provider Internal Medicine | DX: Z00.01 Encounter for general adult medical examination with abnormal findings (principal); Z23 Encounter for immunization; E66.9 Obesity, unspecified; R73.02 Impaired glucose tolerance (oral); G43.909 Migraine, unspecified, not intractable, without status migrainosus; I10 Essential (primary) hypertension; E78.00 Pure hypercholesterolemia, unspecified; K58.2 Mixed irritable bowel syndrome; R21 Rash and other nonspecific skin eruption | CPT/HCPCS: 90471; 90656; 99396 ==

== ENCOUNTER 2024-04-06 09:22 | Outpatient (REF) | payer OTHER, SELFPAY ==
[2024-04-06 09:45] LABS: MANUAL DIFF FLAG NO
[2024-04-06 10:49] LABS: Appearance Urine Clear; Color Urine Yellow; Glucose Urine UA Negative (Negative); Leukocyte Esterase Urine Trace (Negative); Nitrite Urine Negative (Negative); Specific Gravity - Urine <= 1.005 (1.005-1.025); UMIC TRIGGER UA YES; Urine Blood Negative (Negative); Urine Ketones Negative (Negative); Urine Protein Negative (Neg-Trace)
[2024-04-06 10:54] LABS: Basophils Absolute Auto 0.1 X10*3/uL (0.0-0.2); Basophils Percent Auto 0.8 % (0-2); Eosinophils Absolute Auto 0.1 X10*3/uL (0.0-0.4); Eosinophils Percent Auto 1.1 % (0-4); Hematocrit 42.7 % (37.0-47.0); Hemoglobin 14.4 g/dl (12.0-16.0); Imm Gran Pct Auto 1.1 % (0.0-0.4); Lymphocytes Absolute Auto 2.5 X10*3/uL (1.2-4.9); Lymphocytes Percent Auto 29.1 % (20-40); Mean Corpuscular HGB Conc 33.7 g/dl (31.0-35.0); Mean Corpuscular Volume 85.9 fL (80.0-98.0); Mean Platelet Volume 12.7 fL (9.4-12.3); Monocytes Absolute Auto 0.7 X10*3/uL (0.1-1.2); Neutrophils Absolute Auto 5.2 x10*3/uL (2.0-8.3); Neutrophils Percent Auto 59.9 % (45-73); Platelet Count 285 X10*3/uL (160-400); Red Blood Count 4.97 X10*6/uL (4.20-5.50); Red Cell Distribution Width 13.2 % (11.0-16.0); White Blood Count 8.7 X10*3/uL (4.8-10.8)
[2024-04-06 10:55] LABS: Bacteria Urine None Seen (None Seen); Hyaline Casts Urine 0-2 /LPF (0-2); RBC Urine 0-2 /HPF (0-2); Squamous Epithelial Cell Urine 0-2 /HPF (0-2); WBC Urine 0-5 /HPF (0-5)
[2024-04-06 11:01] LABS: Estimated Average Glucose 114 mg/dL; Hemoglobin A1C 139.9717 umol/L; Hemoglobin A1c % 5.6 % (<6.0); Total Hemoglobin (HGBA1C) 3684.1233 umol/L
[2024-04-06 11:28] LABS: Alanine Aminotransferase 26 U/L (0-31); Albumin Level 4.4 g/dL (3.5-5.0); Alkaline Phosphatase 94 U/L (39-117); Anion Gap 12 (12-20); Aspartate Amino Transferase 18 U/L (5-31); Bilirubin Total 0.6 mg/dL (0.0-1.0); Blood Urea Nitrogen 10 mg/dL (9-16); Calcium 9.4 mg/dL (8.4-10.2); Carbon Dioxide 26 mmol/L (22-29); Chloride 105 mmol/L (96-108); Cholesterol 239 mg/dL (<200); Estimated Glomerular Filt Rate > 60; Glucose Random 109 mg/dL (60-115); HDL Cholesterol 43 mg/dL (>40); LDL Cholesterol Calculated 165 mg/dL (<100); Potassium 4.3 mmol/L (3.3-5.1); Sodium 139 mmol/L (135-145); Total Protein 7.5 g/dL (6.5-8.0); Triglycerides 156 mg/dL (<150)
[2024-04-06 11:48] LABS: Free T4 (Free Thyroxine) 0.98 ng/dL (0.71-1.85); Thyroid Stimulating Hormone 1.89 uIU/mL (0.32-4.0); Vitamin D 25-OH Total 25.9 ng/mL (>30)
[2024-04-06 11:55] LABS: Folate 8.8 ng/mL (> or = 4.0); Vitamin B12 780 pg/mL (200-900)
== END 2024-04-06 09:23 | disposition home or self-care (01) ==
LOC: HO.LAB 09:22
PROVIDERS: PCP Internal Medicine; Visit Provider Internal Medicine
DX: K58.9 Irritable bowel syndrome, unspecified (principal); E78.00 Pure hypercholesterolemia, unspecified
CPT/HCPCS: 36415; 80053; 80061; 81001; 82306; 82607; 82746; 83036; 84439; 84443; 85025

== ENCOUNTER 2024-07-09 13:49 | Outpatient (AMB) | payer OTHER, SELFPAY ==
--- NOTE | 2024-07-09 14:20 | A.OFFPC_ITS ---
Vital Signs 07/09/24 14:21 Height 5 ft Weight 171 lb 6 oz BMI 33.5 BP 110/60 Blood Pressure Location Lt brachial Position Sitting Pulse 64 Pulse Source Pulse Oximeter Temp 97.1 F Temp Source Skin Pulse Oximetry (%) 98 Oxygen Delivery Method Room Air Intake Visit Reasons: abdominal pain Intake Note: Patient is here to follow up on Abdominal pain. Manager Pathology Required: No Audio Production Manager: Not Required per policy Accompanied by: Self / Same As Patient Allergies Bleach (Sodium Hypochlorite) Allergy (Severe, Verified 07/09/24 14:21) Anaphylaxis latex Allergy (Intermediate, Verified 07/09/24 14:21) Rash peanut Allergy (Intermediate, Verified 07/09/24 14:21) Rash Tobacco use date assessed: 07/09/24 Dental Screening Dental Screen Date: 07/09/24 Did you have a dental visit in the last 12 months?: No Did you have a dental problem in the last 6 months where you did not have access to dental care?: No Was dental information given to patient?: No HPI abdominal pain HPI Details The patient is a 49-year-old female presenting with a routine follow-up and assessment of laboratory test results. The patient's recent blood work shows persistent hypercholesterolemia, with total cholesterol levels increasing from 218 to 239. A breakdown of lipoprotein levels indicates low high-density lipoprotein (HDL) at 43, and elevated low-density lipoprotein (LDL) levels, exacerbating the risk of cardiovascular disease. The patient also displays hyperglycemia, marked by a fasting blood sugar level of 109, yet Hemoglobin A1c remains within normal limits, signaling pre-diabetes rather than overt diabetes. The patient has a history of hypertension, managed by medication, and reports needing a refill. Further, the patient experiences intermittent gastrointestinal issues characterized by constipation and diarrhea. These symptoms manifest variably, occasionally improving with medication. However, the condition does not cause significant current discomfort. The patient confirms no recent abdominal pain resembling previous episodes requiring hospital intervention. A notable medical history includes a hysterectomy and ongoing vitamin D deficiency, though levels have improved to 25 in recent tests. The patient has ceased using an inhaler and is otherwise not heavily medicated apart from vitamin supplements and antihypertensives. Preventive health measures include an up-to-date mammogram and flu vaccination. [facility] Medical History (Updated 04/01/24 @ 14:13 by Bj Mane MD) Breast cancer screening by mammogram Abdominal pain Annual physical exam Colon cancer screening Palpitations TIA (transient ischemic attack) Blood pressure elevated without history of HTN Endometriosis Hypercholesterolemia Reactive airway disease COVID-19 virus infection Surgical History H/O hysterectomy for benign disease History of ear surgery H/O tubal ligation History of tonsillectomy Family History Mother No problems noted. Father No problems noted. Sister No problems noted. Sister No problems noted. Sister No problems noted. Sister No problems noted. Brother No problems noted. Son No problems noted. Son No problems noted. Daughter No problems noted. Paternal Grandmother Myocardial infarct Paternal Aunt Colon cancer Breast cancer Paternal Uncle Substance abuse Myocardial infarct Social History Housing: House Alcohol intake: current Alcohol intake frequency: holidays/special occasions only Comment: holidays 2-3 drinks 2 days weekend 1-2 drinks Patient Tobacco Use Status: Never used Tobacco e-Cigarette/Vaping Use: Never Used Second Hand Smoke Exposure: No service: No Current occupational status: employed Cognitive needs: No Hearing needs: No Vision needs: Yes (glasses) Questionnaire PHQ-9 Over the last 2 weeks, how often have you been bothered by any of the following problems? 1. Little interest or pleasure in doing things: not at all 2. Feeling down, depressed, or hopeless: not at all 3. Trouble falling or staying asleep, or sleeping too much: not at all 4. Feeling tired or having little energy: not at all 5. Poor appetite or overeating: not at all 6. Feeling bad about yourself - or that you are a failure or have let yourself or your family down: not at all 7. Trouble concentrating on things, such as reading the newspaper or watching television: not at all 8. Moving or speaking so slowly that other people could have noticed. Or the opposite - being so fidgety or restless that you have been moving around a lot more than usual: not at all 9. Thoughts that you would be better off or of hurting yourself in some way: not at all Total score: 0 Depression Screening Interpretation: Negative Depression Screening Done: Yes Source: Developed by Drs. Chandu Root, Mckayla Escobar, Osbaldo Jiang and colleagues, with an educational waleska from [employer]. Thrive Questionnaire Date Thrive assessed: 07/09/24 I am a: Patient What is your living situation today?: I choose not to answer this question Within the past 12 months, did the food you bought not last and you didn't have the money to get more?: I choose not to answer this question Within the past 12 months, did you worry whether your food would run out before you got money to buy more?: I choose not to answer this question Do you have trouble paying for medicines?: I choose not to answer this question Do you have trouble getting transportation to medical appointments?: I choose not to answer this question Do you have trouble paying your heating and electricity bill?: I choose not to answer this question Do you have trouble taking care of your child, family member or friend?: I choose not to answer this question Do you have trouble with day-to-day activities such as bathing, preparing meals, shopping, managing finances, etc.?: I choose not to answer this question Are you currently unemployed and looking for a job?: I choose not to answer this question Are you interested in more education?: I choose not to answer this question Please select the resources that you would like help with: None Currently or been in a relationship where the following occur: I choose not to answer THRIVE Score: 0 AUDIT C Alcohol Use Questionnaire (AUDIT-C) 1. How often do you have a drink containing alcohol?: Monthly or less 2. How many drinks containing alcohol do you have on a typical day when you are drinking?: 1 or 2 3. How often do you have six or more drinks on one occasion?: Never Total Score: 1 PINKY-7 AMB Questionnaire PINKY-7 Date PINKY - 7 assessed: 07/09/24 Feeling nervous, anxious, or on edge: 0 = Not at all Not being able to stop or control worryin = Not at all Worrying too much about different things: 0 = Not at all Trouble relaxin = Not at all Being so restless that it is hard to sit still: 0 = Not at all Becoming easily annoyed or irritable: 0 = Not at all Feeling afraid as if something awful might happen: 0 = Not at all Total PINKY-7 score (0-4 normal; 5-9 mild; 10-14 moderate; 15-21 severe): 0 Source: Developed by Drs. Chandu Root, Mckayla Escobar, Osbaldo Jiang and colleagues, with an educational waleska from [employer]. Physical exam (Primary Care) Vital Signs: Last Vital Signs Temp 97.1 F 07/09/24 14:21 Pulse 64 07/09/24 14:21 BP 110/60 07/09/24 14:21 Pulse Ox 98 07/09/24 14:21 Oxygen Delivery Method Room Air 07/09/24 14:21 BMI result Body Mass Index 33.5 Tobacco/Smoking Status: Tobacco use Status Tobacco use date assessed 07/09/24 07/09/24 14:25 Patient Tobacco Use Status Never used Tobacco 07/09/24 14:25 e-Cigarette/Vaping Use Never Used 07/09/24 14:25 PHQ-9: PHQ-9 Score PHQ-9: Total score 0 07/09/24 14:50 Depression Screening Interpretation: Negative Thrive Assessment: Date of Thrive Assessment Date Thrive assessed 07/09/24 07/09/24 14:25 Currently or been in a relationship where the following occur: I choose not to answer Const General: alert; No acute distress Eyes Conjunctivae: conjunctivae normal Resp Auscultation: clear to auscultation bilaterally Cardio Rate: regular rate Rhythm: regular rhythm GI Inspection: Yes normal to inspection Extrem General: Yes normal to inspection and No edema Coding Level of Care Code Est Pt Level 4 (12726) Diagnoses Obesity (BMI 30-39.9) E66.9 Impaired glucose tolerance R73.02 Hypercholesterolemia E78.00 Assessment & Plan Assessment & Plan (1) Obesity (BMI 30-39.9): Code(s): E66.9 - Obesity, unspecified Category: Medical (2) Impaired glucose tolerance: Code(s): R73.02 - Impaired glucose tolerance (oral) Category: Medical (3) Hypercholesterolemia: Code(s): E78.00 - Pure hypercholesterolemia, unspecified Category: Medical Plan - Reassess hypercholesterolemia by encouraging dietary modification and regular physical activity to improve lipid panel, with a focus on increasing HDL levels. - Monitor blood glucose levels with a six-month follow-up fasting blood test to ensure hyperglycemia does not progress towards diabetes mellitus. - Continuation of current vitamin D supplementation with a reevaluation of levels to ensure it reaches normal range. - Refill prescription for the antihypertensive medication, ensuring blood pressure remains controlled under medication. - Advice on maintaining gastrointestinal health with dietary adjustments and consistent use of prescribed medications to manage constipation and diarrheal episodes. - Reinforce preventive health measures including flu vaccination and general good hygiene practices to reduce the risk of infectious diseases. - Schedule follow-up visit in line with annual physical to reassess health indicators and modify treatment plans as needed. Orders: Orders Complete Blood Count Auto Diff 6 Months R73.02 - Impaired glucose tolerance (oral) Hemoglobin A1c 6 Months R73.02 - Impaired glucose tolerance (oral) Comprehensive Met. Panel 6 Months R73.02 - Impaired glucose tolerance (oral) Thyroid Stimulating Hormone 6 Months R73.02 - Impaired glucose tolerance (oral) Lipid Panel 6 Months E78.00 - Pure hypercholesterolemia, unspecified, R73.02 - Impaired glucose tolerance (oral) Vitamin B12 and Folate 6 Months R73.02 - Impaired glucose tolerance (oral) Vitamin D 25-OH Total 6 Months R73.02 - Impaired glucose tolerance (oral) Free T4 (Free Thyroxine) 6 Months R73.02 - Impaired glucose tolerance (oral) Medications: Refilled propranolol ER 60 mg PO BEDTIME 90 caps 3RF I10 - Essential (primary) hypertension
[2024-07-09 14:21] VITALS: BP 110/60; PULSE 64; TEMP 36.2; O2SAT 98; BMI 33.5
== END 2024-07-09 15:47 | disposition home or self-care (01) ==
PROVIDERS: PCP Internal Medicine; Visit Provider Internal Medicine
DX: R73.02 Impaired glucose tolerance (oral) (principal); E66.9 Obesity, unspecified; E78.00 Pure hypercholesterolemia, unspecified; Z68.33 Body mass index [BMI] 33.0-33.9, adult

== ENCOUNTER → 2024-07-09 13:49 | Outpatient (BNVA) | payer OTHER, SELFPAY | PROVIDERS: PCP Internal Medicine; Visit Provider Internal Medicine | DX: E66.9 Obesity, unspecified (principal); R73.02 Impaired glucose tolerance (oral); E78.00 Pure hypercholesterolemia, unspecified | CPT/HCPCS: 99212 ==

== ENCOUNTER 2024-09-15 08:39 | Outpatient (REF) | payer OTHER, SELFPAY ==
--- OUTSIDE RECORDS SUMMARY | 2024-09-15 09:06 | XMS_ITS | Clinical Summary ---
Author Organization [facility] Address [address] [place] [address] Care Team Providers Care Hand Glass Cutter Name Role Phone AlexsandraZoë GAIL Primary Care Provider [phone] Source Comments PLEASE NOTE, if this patient is a minor, it may be UNLAWFUL to discuss sensitive information that is contained in these records (such as FAMILY PLANNING, MENTAL HEALTH or SUBSTANCE ABUSE) with the minor patient's parent or other person without the patient's specific authorization.[facility] Allergies Active Allergy Reactions Criticality Noted Date Comments Sulfamethoxazole-Trimethoprim 2012 Medications benzonatate (TESSALON) 100 mg capsule Take 1 Cap by mouth 3 (three) times daily as needed for cough. Swallow whole. 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[facility]) Immunizations Immunization Administration Dates Next Due PPD 04/07/2007 Family History Medical History Relation Name Comments Diabetes Father High Cholesterol Father Hypertension Father Diabetes Mother High Cholesterol Mother Hypertension Mother Diabetes Sister High Cholesterol Sister Kidney disease Sister Relation Name Status Comments Father Mother Sister Social History Tobacco Use Types Packs/Day Years Used Date Smoking Tobacco: Never Smokeless Tobacco: Never Alcohol Use Standard Drinks/Week Comments Yes 0.8 (1 standard drink = 0.6 oz p ure alcohol) Comments No Sex and Gender Information Value Date Recorded Sex Assigned at Not on file Legal Sex Female 11:36 AM PDT Gender Identity Not on file Sexual Orientation Not on file Last Filed Vital Signs Vital Sign Reading Time Taken Comments Blood Pressure 130/80 04/12/2014 12:29 PM EDT Pulse 82 04/12/2014 12:29 PM EDT Temperature 36.5 ??C (97.7 ??F) 04/12/2014 12:29 PM E DT Respiratory Rate 15 04/12/2014 12:29 PM EDT Oxygen Saturation - - Inhaled Oxygen Concentration - - Weight 69.4 kg (153 lb) 04/12/2014 12:29 PM EDT Height 152.4 cm (5') 04/12/2014 12:29 PM EDT Body Mass Index 29.88 04/12/2014 12:29 PM EDT Plan of Treatment Not on file Insurance [place] MEDICA[place] Care Teams Hand Glass Cutter Relationship Specialty Start Date End Date Zoë Upton NP [address] [place] [address] PCP - General Internal Medicine 02/08/13
--- OUTSIDE RECORDS SUMMARY | 2024-09-15 09:06 | XMS_ITS | Clinical Summary ---
Author Organization [employer] [facility] it Address [address] [place] [address] Care Team Providers Care Top Distribution Executive Name Role Phone Vahe Carrizales MD Primary Care Provider [phone] Allergies Active Allergy Reactions Criticality Noted Date Comments Latex 12/26/2017 Nut - Unspecified 12/26/2017 almonds Skin Bleaching With Sunscreen Itching 2023 Medications propranoloL (INDERAL) 60 mg tablet Take 1 Tablet by mouth daily. Active Active Problems Problem Noted Date Diagnosed Date Bilateral ovarian cysts 12/26/2017 Endometriosis 12/26/2017 Hyperlipidemia 12/26/2017 Kidney stone 12/26/2017 Onychomycosis 11/21/2005 Other acne 11/21/2005 Dysplasia of cervix (uteri) 07/31/2005 Overview (06/10/2024): IMO update Palpitations 07/31/2005 Immunizations Name Administration Dates Next Due Influenza Quadravalent, MDCK , 0.5ml, preservative free (Flucelvax) 6mo and older 04/22/2019 Td Tetanus diptheria (Tdvax) 7yo and older 06/23 Tdap Tetanus diptheria acell ular pertussis (Boostrix; Adacel) 7yo and older 04/22/2019 Surgical History Surgery Date Site/Laterality Comments TONSILLECTOMY PROCEDURE: HISTORICAL TONSILLECTOMY TUBAL LIGATION PROCEDURE: HISTORICAL TUBAL LIGATION MOLE REMOVAL PROCEDURE: HISTORICAL MOLE (REMOVAL OF); COMMENT: benign Medical History Medical History Date Comments Palpitations 07/31/2005 DX:Palpitations Dysplasia of cervix (uteri) 07/31/2005 DX:D ysplasia of cervix (uteri) Dermatophytosis of nail 11/21/2005 DX:[place] tophytosis of nail Other acne 11/21/2005 DX:Other acne Family History Medical History Relation Name Comments Breast cancer Aunt 1 maternal aunt Uterine cancer Aunt 1 Breast cancer Aunt 2 maternal aunt Colon cancer Aunt 2 Asthma Father Heart attack Father late 50s-60s Hyperlipidemia Father Other: alcohol abuse Father Diabetes Mother hypertension, M I, stroke Other: HIV Mother Breast cancer Other maternal cousi n Hyperlipidemia Paternal Grandfather Kidney failure Sister 1 on dialysis Other: hypothyroid Sister 2 elevated cholesterol Relation Name Status Comments Aunt 1 Aunt 2 Daughter Alive Father Mother Other Paternal Grandfather Sister 1 Sister 2 Son 1 Alive Son 2 Alive Social History Tobacco Use Types Packs/Day Years Used Date Smoking Tobacco: Never Smokeless Tobacco: Never Alcohol Use Standard Drinks/Week Comments Yes 2 (1 standard drink = 0.6 oz pur e alcohol) Comments Unknown Sex and Gender Information Value Date Recorded Sex Assigned at Not on file Legal Sex Female 3:31 PM EST Gender Identity Not on file Sexual Orientation Not on file Obstetrics History Last Filed Vital Signs Vital Sign Reading Time Taken Comments Blood Pressure 130/86 01/02/2023 11:43 AM EDT Pulse 92 01/02/2023 11:43 AM EDT Temperature - - Respiratory Rate - - Oxygen Saturation - - Inhaled Oxygen Concentration - - Weight 75.5 kg (166 lb 6.4 oz) 01/02/2023 11:43 AM EDT Height 152.4 cm (5') 01/02/2023 11:43 AM EDT Body Mass Index 32.5 01/02/2023 11:43 AM EDT Plan of Treatment Health Maintenance Due Date Last Done Comments Hepatitis B Vaccines (1 of 3 - 19+ 3-dose series) 1994 Breast Cancer Screening 03/20/2022 03/20/20 20, 03/16/2019, 03/11/2018 Colorectal Cancer Screening: Colonoscopy 05/22/2022 Depression Screening 05/22/2022 HIV Screening 05/22/2022 Hepatitis C Screening 05/22/2022 Social Influencers of Health Screening 05/22/2022 COVID-19 Vaccine (2 - 2023-2 5 season) 2024 07/24/2020 Influenza Vaccine (#1) 2024 04/22/2019 Cholesterol Screening (Lipid Panel) 04/22/2024 04/22/2019 Cervical Cancer Screening: P ap Smear 12/21/2024 12/21/2021 DTaP,Tdap,and Td Vaccines (3 - Td or Tdap) 04/22/2029 04/22/2019, 06/23/2002 HIB Vaccines Aged Out No longer eligi ble based on patient's age to complete this topic HPV Vaccines Aged Out No longer eligi ble based on patient's age to complete this topic Hepatitis A Vaccines Aged Out No long er eligible based on patient's age to complete this topic IPV Vaccines Aged Out No longer eligi ble based on patient's age to complete this topic MMR Vaccines Aged Out No longer eligi ble based on patient's age to complete this topic Meningococcal ACWY Vaccine Aged Out N o longer eligible based on patient's age to complete this topic Meningococcal B Vacine Aged Out No lo nger eligible based on patient's age to complete this topic Pneumococcal Vaccine: Pediatrics (0 to 5 Years) and At-Risk Patients (6 to 64 Years) Aged Out No longer eligible b ased on patient's age to complete this topic RSV Immunization Patients Under 20 months Aged Out No longer eligible b ased on patient's age to complete this topic Varicella Vaccines Aged Out No longer eligible based on patient's age to complete this topic Procedures Procedure Name Priority Date/Time Associated Diagnosis Comments PAP SMEAR Routine 12/21/2021 SCR MAMMO BI INCL CAD Routine 03/20/2020 4:00 PM EDT Encounter for screening mammogram for malignant neoplasm of breast LIPID PANEL Routine 04/22/2019 from Last 3 Months or Most Recently Relevant to Health Maintenance Results * Pap Smear (12/21/2021) Pap smear abstracted, no interpretation Historical Provider MD HEALTH MAINTENANCE Final Result * SCR MAMMO BI INCL CAD (03/20/2020 4:00 PM EDT) Anatomical Region Laterality Modality Radiographic Gilma ging 03/16/2019 4:04 PM EDT Narrative 03/21/2020 9:17 AM EDT This is a summary report. The complete report is available in the patient's medical record. If you cannot access the medical record, please contact the sending organization for a detailed fax or copy. Full field digital screening mammography, reviewed with CAD and compared to previous mammograms dating back to 07/07/2015 with most recent of 03/16/2019. ??The breasts are composed of fatty and fibroglandular tissue. ??No suspicious mass, architectural distortion or suspicious calcifications are identified. IMPRESSION: : No mammographic evidence of malignancy. BIRADS 1-Negative; N. 5 year breast cancer risk assessment 0.4 % Lifetime breast cancer risk assessment 4.9 % Breast cancer risk category Low (<15%) Procedure Note Anya Weeks MD - 06/11/2022 This is a summary report. The complete report is available in thepatient's medical record. If you cannot access the medical record, pleasecontact the sending organization for a detailed fax or copy. Full field digital screening mammography, reviewed with CAD and comparedto previous mammograms dating back to 07/07/2015 with most recent of03/16/2019. The breasts are composed of fatty and fibroglandular tissue.No suspicious mass, architectural distortion or suspicious calcificationsare identified. IMPRESSION: : No mammographic evidence of malignancy. BIRADS 1-Negative; N. 5 year breast cancer risk assessment 0.4 % Lifetime breast cancer risk assessment 4.9 % Breast cancer risk category Low (<15%) Chandu Rivas MD IMG XR PROCEDURES Final Result * (ABNORMAL) Lipid panel (04/22/2019) LDL/HDL Ratio 5(A) 0 - 4 Triglycerides 162(A) 0 - 150 mg/dL Cholesterol 268(A) 0 - 200 mg/dL HDL 52 >=40 mg/dL LDL Cholesterol 184(A) 0 - 100 mg/dL Blood Venous blood specimen / Unknown Historical Provider LAB BLOOD ORDERABLES Esthela l Result from Last 3 Months or Most Recently Relevant to Health Maintenance Care Teams Top Distribution Executive Relationship Specialty Start Date End Date Vahe Carrizales MD [facility] - General 04/22/19
== END 2024-09-15 08:40 | disposition home or self-care (01) ==
LOC: HO.MAMMO 08:39
PROVIDERS: PCP Internal Medicine; Visit Provider Internal Medicine
DX: Z12.31 Encounter for screening mammogram for malignant neoplasm of breast (principal)
CPT/HCPCS: 77063; 77067

== ENCOUNTER → 2024-09-15 09:00 | Outpatient (BNV) | payer OTHER, SELFPAY | PROVIDERS: PCP Internal Medicine; Visit Provider Internal Medicine | DX: Z12.31 Encounter for screening mammogram for malignant neoplasm of breast (principal) | CPT/HCPCS: 77063; 77067 ==

== ENCOUNTER 2024-09-29 10:53 | Outpatient (AMB) | payer OTHER, SELFPAY ==
[2024-09-29 10:59] VITALS: BP 122/84; PULSE 64; O2SAT 98; BMI 33.0
--- NOTE | 2024-09-29 10:59 | AM.OFFWIN_ITS ---
Intake Vital Signs 09/29/24 10:59 Height 5 ft Weight 169 lb BMI 33.0 BP 122/84 Blood Pressure Location Rt brachial Position Sitting Pulse 64 Pulse Source Pulse Oximeter Pulse Oximetry (%) 98 Oxygen Delivery Method Room Air Intake Visit Reasons: EP Abdominal pain, nausea, headache Intake Note: Patient here for sharp abdominal pain that has been present for a couple of days now. Patient Tobacco Use Status: Never used Tobacco Allergies Bleach (Sodium Hypochlorite) Allergy (Severe, Verified 09/29/24 11:04) Anaphylaxis latex Allergy (Intermediate, Verified 09/29/24 11:04) Rash peanut Allergy (Intermediate, Verified 09/29/24 11:04) Rash HPI HPI Comments History of Present Illness Details History of Present Illness - The patient is a 49-year-old female wi th a past medical history of IBS with constipation, HTN, HLD presenting with 3 days of sharp abdominal pain localized in the lower abdomen. - She confirms a history of IBS and cons tipation but states this episode is different from her usual IBS symptoms. - Recent self-management with 2 Ducolax yesterday which led to diarrhea yesterday afternoon, but pain and symptoms persist. - Noted symptoms include chills and naus ea, but no fever. - Normal bowel movement patterns are dis turbed, with recent episodes of diarrhea. - Denies urinary symptoms. Physical Exam General: Cooperative, healthy appearing, comfortable, no acute distress and well developed Orientation: Patient oriented x3 Limitations: No limitations Head: Normal to inspection Ears: Hearing grossly normal bilaterally Nose: Normal External nose present Face and sinus: Normal facial exam Eyes: Appearance normal, both eyes and all related structures Neck: Normal visual inspection and Yes full ROM Respiratory: Normal respiratory effort and able to speak in complete sentences. GI: normoactive bs, soft, + mcburney's, rebound tenderness and guarding. Skin: No rashes or lesions noted Neuro: Patient oriented x3 Extremities: Normal to inspection PFSH Medical History (Updated 09/29/24 @ 11:41 by Susanna Hoffman PA-C) Breast cancer screening by mammogram Abdominal pain Annual physical exam Colon cancer screening Palpitations TIA (transient ischemic attack) Blood pressure elevated without history of HTN Endometriosis Hypercholesterolemia Reactive airway disease COVID-19 virus infection Surgical History H/O hysterectomy for benign disease History of ear surgery H/O tubal ligation History of tonsillectomy Family History Mother No problems noted. Father No problems noted. Sister No problems noted. Sister No problems noted. Sister No problems noted. Sister No problems noted. Brother No problems noted. Son No problems noted. Son No problems noted. Daughter No problems noted. Paternal Grandmother Myocardial infarct Paternal Aunt Colon cancer Breast cancer Paternal Uncle Substance abuse Myocardial infarct Social History Housing: House Alcohol intake: current Alcohol intake frequency: holidays/special occasions o nly Comment: holidays 2-3 drinks 2 days weekend 1-2 drinks Patient Tobacco Use Status: Never used Tobacco e-Cigarette/Vaping Use: Never Used Second Hand Smoke Exposure: No service: No Current occupational status: employed Cognitive needs: No Hearing needs: No Vision needs: Yes (glasses) Review of Systems Const All systems reviewed & are unremarkable except as noted in HPI and below Physical Exam Vital Signs: Last Vital Signs Pulse 64 09/29/24 10:59 BP 122/84 09/29/24 10:59 Pulse Ox 98 09/29/24 10:59 Oxygen Delivery Method Room Air 09/29/24 10:59 BMI result Body Mass Index 33.0 Assessment & Plan Assessment & Plan (1) RLQ abdominal tenderness: Code(s): R10.813 - Right lower quadrant abdominal tenderness Qualifiers: Presence of rebound: present Qualified Code(s): R10.823 - Right lower quadrant rebound abdominal tenderness Plan: Based on the acute presentation of 3 days sharp abdominal pain in the right lowe r quadrant, consistent with suspected appendicitis, the patient will be urgently referred to the emergency department for further evaluation, including imaging and potential surgical intervention. Given the severe risks associated with untreated appendicitis, rapid evaluation is advised to prevent complications. The patient understands the need for immediate assessment and agreed to proceed to the [facility] for further diagnostic and potential therapeutic intervention. [place] [facility] [place], spoke with triage provider, KAYLEN Acosta. Patient was informed and verbally consented to the use of an ambient scribe for clinic note documentation during this visit. Coding Level of Care Code Est Pt Level 5 (46875) Diagnoses Right lower quadrant abdominal tenderness with rebound tenderness R10.823 Presence of rebound: present
--- OUTSIDE RECORDS SUMMARY | 2024-09-29 12:43 | XMS_ITS | Clinical Summary ---
Author Organization [facility] Address [address] [place] [address] Care Team Providers Care Business Quality Assurance Analyst Name Role Phone AlexsandraZoë GAIL Primary Care Provider [phone] Source Comments PLEASE NOTE, if this patient [...] < 160 03/05/2013 HCP (hereditary coproporphyria) ([facility]) Immunizations Immunization Administration Dates Next Due PPD [...] Plan of Treatment Not on file Insurance [place] MEDICAID Care Teams Business Quality Assurance Analyst Relationship Specialty Start Date End Date Zoë Upton NP [address] [place] [address] PCP - General Internal Medicine 02/08/13
--- OUTSIDE RECORDS SUMMARY | 2024-09-29 12:43 | XMS_ITS | Clinical Summary ---
Author Organization [employer] [facility] it Address [address] [place] [address] Care Team Providers Care Microstrategy Reports Developer Name Role Phone Vahe Carrizales MD Primary Care Provider [phone] Allergies Active Allergy Reactions Criticality Noted Date [...] of cervix (uteri) Dermatophytosis of nail 11/21/2005 DX:[place] tophytosis of nail Other acne 11/21/2005 DX:Other [...] age to complete this topic Meningococcal B Vaccine Aged Out No l onger eligible based on patient's age to complete [...] Smear (12/21/2021) Pap smear abstracted, no interpretation us Historical Provider MD HEALTH MAINTENANCE Final Result [...] Recently Relevant to Health Maintenance Care Teams Microstrategy Reports Developer Relationship Specialty Start Date End Date Vahe Carrizales MD [facility] - General 04/22/19
== END 2024-09-29 12:20 | disposition home or self-care (01) ==
PROVIDERS: PCP Internal Medicine; Visit Provider Physician Assistant
DX: R10.823 Right lower quadrant rebound abdominal tenderness (principal)

== ENCOUNTER → 2024-09-29 10:53 | Outpatient (BNVA) | payer OTHER, SELFPAY | PROVIDERS: PCP Internal Medicine; Visit Provider Physician Assistant ==

== ENCOUNTER 2024-09-29 12:13 | Emergency (ER) | payer OTHER, SELFPAY ==
--- NOTE | ~2024-09-29 | CT_ITS ---
EXAMINATION: CT ABDOMEN AND PELVIS WITH CONTRAST CLINICAL INFORMATION: Abdominal pain. COMPARISON: None available. TECHNIQUE: Multidetector volumetric images were obtained from the superior aspect of the liver through the pubic symphysis following administration 85 mL of Omnipaque 350 intravenous contrast. Sagittal and coronal reformatted images were obtained on the technologist's workstation. Oral contrast: No This CT examination was performed using dose optimization techniques as appropriate, variously including the following: *Automated exposure control *Adjustment of mA and/or kV according to patient size (this includes techniques or standardized protocols for targeted exams where dose is matched to indication/reason for exam; i.e. extremities or head) *Use of iterative reconstruction technique DLP: 537 mGy centimeter. FINDINGS: LUNG BASES: No acute airspace disease. LIVER, GALLBLADDER, AND BILIARY TREE: Liver measures 17 cm. Decreased attenuation. 2 mm cystic lesion too small to be fully characterized. No focal mass. Portal veins, hepatic veins and intrahepatic portion of the IVC are patent. No pericholecystic fluid collection or gallbladder wall thickening. No intrahepatic or extrahepatic biliary ductal dilatation. PANCREAS: No focal mass. No peripancreatic fluid collection. No main pancreatic ductal dilatation. SPLEEN: 9 cm. No focal mass. ADRENAL GLANDS: No nodular lesions. KIDNEYS AND URETERS: No hydronephrosis. No gross nephrolithiasis. No gross renal mass. Normal enhancement pattern of the renal parenchyma. BLADDER: Fluid-filled nearly collapsed. GASTROINTESTINAL TRACT: Appendix is normal. No intestinal obstruction pattern. No gross wall thickening. No pneumatosis intestinalis. No pneumoperitoneum. No ascites. ABDOMINAL WALL: Diastases abdominal rectus muscles and small fat-containing umbilical hernia. LYMPH NODES: Nonspecific mildly prominent lymph nodes, mesenteric and retroperitoneum. VASCULAR: , Abdominal aorta wall without aneurysm or dissection. PELVIC VISCERA: Absent uterus. Gas within the vaginal cuff. OSSEOUS STRUCTURES: Mild multilevel thoracolumbar spondylosis. No acute fracture or listhesis. CT/CT abdomen pelvis w IV con IMPRESSION: Hepatomegaly, mild and steatosis. Diastases abdominal rectus muscles with a small fat-containing umbilical hernia. Fleischner guidelines were followed. Electronically signed by: Carlos Eduardo Munoz MD 09/29/2024 02:52 PM EDT
[2024-09-29 12:51] VITALS: BP 136/82; PULSE 75; RESP 18; TEMP 36.7; O2SAT 98; BMI 32.5
--- NOTE | 2024-09-29 12:55 | ED_ITS ---
HPI - General Adult General Chief complaint: Abdominal Pain Stated complaint: abd pain got sent from [facility] Time Seen by Provider: 09/29/24 14:16 Source: patient Mode of arrival: ambulatory Limitations: no limitations History of Present Illness ED Provider: Akila Deutsch PA-C HPI narrative: 49 year old female with PMHx IBS, HTN, HLD presenting to the ED c/o nonradiating lower abdominal pain x 3 days. Reports the pain is worse in the RLQ and constant with intermittent sharp pains, associated nausea and fatigue. Reports initially thought she was constipated, tried colace, Dulcolax, Milanta, Alieve over the past several days, which led to diarrhea yesterday, but symptoms and pain persist. Reports this feels different than previous episodes of IBS associated with constipation. Reports hx hysterectomy. Denies fever, CP, cough, SOB, blood in stool, dysuria, hematuria, numbness/tingling. Denies smoking, alcohol, drug use. Onset (ago): day(s) (3) Location: abdomen Radiation: non-radiation Quality: sharp and dull Relieving factors: none Exacerbating factors: none Associated symptoms: nausea/vomiting Treatments prior to arrival: NSAID and other (colace, Dulcolax, Milanta, Alieve) Related Data Home Medications ?Medication ?Instructions ?Recorded ?Confirmed docusate sodium 100 mg capsule 100 mg PO DAILY 07/08/23 04/01/24 (Colace) cholecalciferol (vitamin D3) 50 50 mcg PO DAILY 04/01/24 04/01/24 mcg (2,000 unit) capsule Previous Rx's ?Medication ?Instructions ?Recorded albuterol sulfate 90 mcg/actuation 2 puff inhalation QID #8.5 grams 07/08/23 aerosol inhaler (ProAir HFA) propranolol 60 mg capsule,24 60 mg PO BEDTIME #90 caps 07/09/24 hr,extended release Allergies Allergy/AdvReac Type Severity Reaction Status Date / Time Bleach (Sodium Hypochlorite) Allergy Severe Anaphylaxis Verified 09/29/24 12:54 latex Allergy Intermediate Rash Verified 09/29/24 12:54 peanut Allergy Intermediate Rash Verified 09/29/24 12:54 Review of Systems 2 Constitutional: Constitutional: Reports no additional constitutional complaints, Denies chills, Reports fatigue, Denies fever(s), Denies headache(s) and Denies night sweats Eyes: Eyes: Reports no additional eye complaints, Denies blurry vision, Denies change in vision, Denies diplopia, Denies eye discharge, Denies loss of vision and Denies eye pain ENT: Denies dizziness and Denies headache(s) Cardiovascular: Cardiovascular: Reports no additional cardiovascular complaints, Denies chest pain, Denies lightheadedness, Denies Loss of Consciousness and Denies dyspnea Respiratory: Respiratory: Reports no additional respiratory complaints and Denies dyspnea Gastrointestinal: Gastrointestinal: Reports no additional gastrointestinal complaints, Reports abdominal pain (lower abd), Denies melena, Denies hematochezia, Denies change in bowel habits, Denies change in stool character, Reports diarrhea, Reports nausea and Denies vomiting Genitourinary: Genitourinary: Denies hematuria, Denies urinary frequency, Denies dysuria, Denies urinary incontinence, Denies urinary hesitancy and Denies urinary urgency Musculoskeletal: Musculoskeletal: Reports no additional musculoskeletal complaints, Denies numbness and Denies tingling Neurologic: Denies dizziness, Denies headache(s), Denies loss of vision, Denies numbness and Denies tingling Psychiatric: Psychiatric: Reports no additional psychiatric complaints Endocrine: Endocrine: Reports no additional endocrine complaints and Reports fatigue Hematologic/Lymphatic: Hematologic/Lymphatic: Reports no additional hematologic/lymphatic complaints Allergic/Immunologic: Allergic/Immunologic: Reports no additional allergic/immunologic complaints PMF Past Medical History Attestation statement: The following information was validated with the patient. Source: old records reviewed and nursing notes reviewed Medical History Breast cancer screening by mammogram Abdominal pain Annual physical exam Colon cancer screening Palpitations TIA (transient ischemic attack) Blood pressure elevated without history of HTN Endometriosis Hypercholesterolemia Reactive airway disease COVID-19 virus infection Surgical History H/O hysterectomy for benign disease History of ear surgery H/O tubal ligation History of tonsillectomy Family History Family History Mother No problems noted. Father No problems noted. Sister No problems noted. Sister No problems noted. Sister No problems noted. Sister No problems noted. Brother No problems noted. Son No problems noted. Son No problems noted. Daughter No problems noted. Paternal Grandmother Myocardial infarct Paternal Aunt Colon cancer Breast cancer Paternal Uncle Substance abuse Myocardial infarct Social History Social History Housing: House Alcohol intake: current Alcohol intake frequency: holidays/special occasions only Alcohol type: wine Comment: holidays 2-3 drinks 2 days weekend 1-2 drinks Patient Tobacco Use Status: Never used Tobacco Smoked in Last 30 Days: No e-Cigarette/Vaping Use: Never Used Second Hand Smoke Exposure: No Use of substances other than those prescribed or required for medical reasons: No Advance Directives: No Advance Directives Information Provided: Yes Do you have a plan to hurt others: No Plan Patient : No service: No Current occupational status: employed Cognitive needs: No Hearing needs: No Vision needs: Yes (glasses) Physical Exam ED Vital Signs: Vital Signs - 24 hr 09/29/24 12:51 09/29/24 14:16 09/29/24 16:17 Temperature 98.0 F 0 F L Pulse Rate 75 74 74 Respiratory Rate 18 16 16 Blood Pressure 136/82 151/81 H 151/81 H Pulse Oximetry 98 Oxygen Delivery Method Room Air BMI result Body Mass Index 32.5 Const General: cooperative, no acute distress, alert and awake Nutritional Appearance: well nourished Orientation/consciousness: patient oriented x3 Limitations: no limitations HENMT Head: Yes normal to inspection and Yes atraumatic Ears: hearing grossly normal bilaterally and external ears normal General nose exam: Normal external nose present, no nasal discharge noted and no epistaxis Face and sinus: Yes normal facial exam, No abrasion and No laceration Mouth: Normal oral and palatal mucosa present, no drooling and no muffled voice Eyes General: appearance normal, both eyes and all related structures Periorbital: periorbital findings normal Eyelids: Yes eyelids normal Conjunctivae: conjunctivae normal Pupils: Equal, round and reactive pupils present EOM: EOMs intact bilaterally Neck Neck: Yes normal visual inspection, Yes full ROM and Yes no lymphadenopathy Chest Chest palpation & inspection: normal inspection of the chest Resp Effort & Inspection: normal respiratory effort and able to speak in complete sentences Auscultation: clear to auscultation bilaterally Cardio Rate: regular rate Rhythm: regular rhythm GI Inspection: Yes normal to inspection and No abdominal wall ecchymosis Palpation (GI): Soft to palpation, not firm, Tenderness to palpation present (GI) in the LLQ, in the RLQ, at McBurney's point and with rebound tenderness, not rigid and Rebound tenderness present Auscultation: normal bowel sounds Neuro General: patient oriented x3, moves all extremities and CN's II-XI intact bilaterally Cranial nerves: Yes Equal, round and reactive pupils present Cognition (Neuro): normal cognition Extrem General: Yes normal to inspection, Yes full ROM and Yes capillary refill normal Psych Appearance: grossly normal Mental Status: mental status grossly normal Affect: normal affect Attitude: cooperative Thought process: Normal thought process present Thought content: Normal thought content present Insight: Good insight present (Psych) Course Course Course Narrative: RME, this is a rapid medical exam performed by Dave Weems please refer to primary provider for complete H&P- 49-year-old female presents for evaluation of right lower abdominal pain. She was seen at urgent care today and referred to the ER to rule out appendicitis for right lower quadrant pain and tenderness. She has had pain for the last 3 days. Plan for labs, testing and urinalysis. Will defer advanced imaging to primary ER provider Medications Administered Discontinued Medications Generic Name Dose Route Start Last Admin Trade Name Freq PRN Reason Stop Dose Admin Iohexol 100 ml 09/29/24 14:23 09/29/24 14:24 Iohexol 350 Mg/Ml 100 Ml Infus..Btl IV 09/29/24 14:24 85 ml ONCE ONE Administration Ketorolac Tromethamine 15 mg 09/29/24 15:29 09/29/24 15:30 Ketorolac Tromethamine 15 Mg/Ml Vial IVPUSH 09/29/24 15:30 15 mg ONCE ONE Administration Morphine Sulfate 4 mg 09/29/24 14:47 09/29/24 15:04 Morphine Sulfate 4 Mg/Ml Cartridge IVPUSH 09/29/24 14:48 Not Given ONCE ONE Protocol Ondansetron HCl 4 mg 09/29/24 14:47 09/29/24 14:56 Ondansetron Hcl 4 Mg/2 Ml Vial IVPUSH 09/29/24 14:48 4 mg ONCE ONE Administration Medical Decision Making Medical Decision Making MDM Narrative: Patient is a 49 year old assigned female at with a history of IBS, endometriosis s/p hysterectomy, and HTN presenting to the emergency department today with abdominal pain, nausea, vomiting, and diarrhea. Patient's physical exam was as noted in the physical exam portion of this note. Patient's blood work showed a mild elevation of her WBC count at 11.2 but otherwise unremarkable. Patient's urine showed no acute process. Patient's CT of the abdomen showed diastases abdominal rectus muscles with a small fat-containing umbilical hernia but no other acute process. I explained my physical exam findings as well as all test results to the patient. I answered all questions asked by the patient. I stressed the importance of the patient taking her medication as directed (either prescribed or as the over the counter packaging recommends). I stressed the importance of the patient following up with her primary care provider and GI specialist. I stressed the importance of the patient returning to the emergency department immediately if her symptoms were to worsen or if she were to develop any dizziness, shortness of breath, difficulty breathing, chest pain, blurry vision, loss of vision, nausea, vomiting, abdominal pain, fever, chills, back pain, or any other complaints. Patient verbalized agreement and understanding with this treatment plan and discharge. Differential Diagnosis Differential Diagnoses: The differential diagnosis associated with the presentation includes Abdominal pain Nausea Vomiting IBS flare Ectopic endometriosis Admission/Observation Consideration of admission/observation: Escalation of care including admission/observation considered Patient would have been admitted to the hospital had her work up had any findings where hospital admission was appropriate and her clinical presentation warranted hospital admission. Lab Data [facility] Lab Attestation statement: I reviewed the patient's lab results. My interpretation of these results are in the MDM Rationale portion of this note. 09/29/24 13:02 09/29/24 13:02 Labs: Lab Results 09/29/24 09/29/24 Range/Units 13:02 13:09 WBC 11.2 H (4.8-10.8) X10*3/uL RBC 4.95 (4.20-5.50) X10*6/uL Hgb 14.4 (12.0-16.0) g/dl Hct 43.1 (37.0-47.0) % MCV 87.1 (80.0-98.0) fL MCH 29.1 (27.0-33.0) pg MCHC 33.4 (31.0-35.0) g/dl RDW 13.2 (11.0-16.0) % Plt Count 268 (160-400) X10*3/uL MPV 12.7 H (9.4-12.3) fL Immature Gran % (Auto) 0.9 H (0.0-0.4) % Neut % (Auto) 58.6 (45-73) % Lymph % (Auto) 30.6 (20-40) % [place] % (Auto) 8.1 (2-11) % Eos % (Auto) 1.2 (0-4) % Baso % (Auto) 0.6 (0-2) % Lymph # (Auto) 3.4 (1.2-4.9) X10*3/uL [place] # (Auto) 0.9 (0.1-1.2) X10*3/uL Eos # (Auto) 0.1 (0.0-0.4) X10*3/uL Baso # (Auto) 0.1 (0.0-0.2) X10*3/uL Abs Immat Gran (auto) 0.10 H (0.00-0.03) X10*3/uL Absolute Neuts (auto) 6.6 (2.0-8.3) x10*3/uL Absolute Nucleated RBC 0.000 (0.0-0.012) X10*3/uL Nucleated RBC % (auto) 0.0 (0.0-0.2) /100WBC Sodium 139 (135-145) mmol/L Potassium 4.3 (3.3-5.1) mmol/L Chloride 109 H (96-108) mmol/L Carbon Dioxide 25 (22-29) mmol/L Anion Gap 9 L (12-20) BUN 14 (9-16) mg/dL Creatinine 0.73 (0.5-1.4) mg/dL Estim Creat Clear Calc 84.5 Estimated GFR > 60 Random Glucose 90 (60-115) mg/dL Calcium 9.5 (8.4-10.2) mg/dL Magnesium 2.3 (1.6-2.6) mg/dL Total Bilirubin 0.4 (0.0-1.0) mg/dL Direct Bilirubin 0.1 (0.0-0.5) mg/dL AST 22 (5-31) U/L ALT 32 H (0-31) U/L Alkaline Phosphatase 89 (39-117) U/L Total Protein 7.5 (6.5-8.0) g/dL Albumin 4.4 (3.5-5.0) g/dL Lipase 15 (8-78) U/L Beta HCG, Quant < 2 mIU/mL Urine Color Yellow Urine Appearance Clear Urine pH 6.0 (5.0-9.0) Ur Specific [place] 1.025 (1.005-1.025) Urine Protein Negative (Neg-Trace) mg/dL Urine Glucose (UA) 100 H (Negative) mg/dL Urine Ketones Negative (Negative) mg/dL Urine Blood Negative (Negative) Urine Nitrite Negative (Negative) Ur Leukocyte Esterase Negative (Negative) Urine RBC 0-2 (0-2) /HPF Urine WBC 0-5 (0-5) /HPF Ur Squamous Epith Cells 6-10 (0-2) /HPF Urine Bacteria Trace (None Seen) Hyaline Casts 0-2 (0-2) /LPF Independent Interpretation I performed an independent interpretation of an: CT Scan Interpretation: My interpretation is in agreement with the radiologist's impression of this imaging study. L Report Number: [id number]: Total DLP = 537.00 mGy-cm EXAMINATION: CT ABDOMEN AND PELVIS WITH CONTRAST CLINICAL INFORMATION: Abdominal pain. COMPARISON: None available. TECHNIQUE: Multidetector volumetric images were obtained from the superior aspect of the liver through the pubic symphysis following administration 85 mL of Omnipaque 350 intravenous contrast. Sagittal and coronal reformatted images were obtained on the technologist's workstation. Oral contrast: No This CT examination was performed using dose optimization techniques as appropriate, variously including the following: *Automated exposure control *Adjustment of mA and/or kV according to patient size (this includes techniques or standardized protocols for targeted exams where dose is matched to indication/reason for exam; i.e. extremities or head) *Use of iterative reconstruction technique DLP: 537 mGy centimeter. FINDINGS: LUNG BASES: No acute airspace disease. LIVER, GALLBLADDER, AND BILIARY TREE: Liver measures 17 cm. Decreased attenuation. 2 mm cystic lesion too small to be fully characterized. No focal mass. Portal veins, hepatic veins and intrahepatic portion of the IVC are patent. No pericholecystic fluid collection or gallbladder wall thickening. No intrahepatic or extrahepatic biliary ductal dilatation. PANCREAS: No focal mass. No peripancreatic fluid collection. No main pancreatic ductal dilatation. SPLEEN: 9 cm. No focal mass. ADRENAL GLANDS: No nodular lesions. KIDNEYS AND URETERS: No hydronephrosis. No gross nephrolithiasis. No gross renal mass. Normal enhancement pattern of the renal parenchyma. BLADDER: Fluid-filled nearly collapsed. GASTROINTESTINAL TRACT: Appendix is normal. No intestinal obstruction pattern. No gross wall thickening. No pneumatosis intestinalis. No pneumoperitoneum. No ascites. ABDOMINAL WALL: Diastases abdominal rectus muscles and small fat-containing umbilical hernia. LYMPH NODES: Nonspecific mildly prominent lymph nodes, mesenteric and retroperitoneum. VASCULAR: Abdominal aorta wall without aneurysm or dissection. PELVIC VISCERA: Absent uterus. Gas within the vaginal cuff. OSSEOUS STRUCTURES: Mild multilevel thoracolumbar spondylosis. No acute fracture or listhesis. CT/CT abdomen pelvis w IV con IMPRESSION: Hepatomegaly, mild and steatosis.Diastases abdominal rectus muscles with a small fat-containing umbilical hernia. Fleischner guidelines were followed. Electronically signed by: Carlos Eduardo Munoz MD 09/29/2024 02:52 PM EDT RP Dictated By: Carlos Eduardo Hannon MD Signed By: Electronically signed by Carlos Eduardo Barkley MD 09/29/24 1458 Radiology Impression Discussion of test interpretation with radiology: I have reviewed the radiologist's reading. Discharge Plan Discharge Clinical Impression: Abdominal pain Patient Disposition: Home, Self-Care Instructions: Abdominal Pain (ED) Additional Instructions: Your work up today showed no emergent cause for your abdominal pain and was very reassuring. Follow up with your primary care provider and a GI specialist. Return to the emergency department immediately if your symptoms worsen or if you develop any numbness, tingling, dizziness, shortness of breath, difficulty breathing, chest pain, blurry vision, loss of vision, nausea, vomiting, abdominal pain, fever, chills, back pain, or any other complaints. Please see the information below about our Patient Portal. If you are not yet enrolled in the [facility] Patient Portal, you will receive an enrollment email invitation following your visit to any [facility] care setting. You may also self-enroll in the Patient Portal by visiting our website: [email or web address] The following information is required to access the Patient Portal: - Your [facility] Medical Record Number - Your personal home email address (must match what is in your electronic medical record, Registration staff can assist with this) - Name - Date of Capabilities of the Patient Portal: - Message some providers - View upcoming appointments - Access your health summary, medical history, and visit history - View current conditions and allergies - View procedure and lab results - View your medications, including guidelines, side effects, and precautions - Complete pre-appointment questionnaires requested by your provider - Ready summary reports of your office visits and procedures To access the Patient Portal Mobile Natanael, follow these directions: - Search [email or web address] in the [employer] Store or [employer] Store - Download the Natanael - Search for [facility] - Enter your login/password Prescriptions: No Action albuterol sulfate [ProAir HFA] 90 mcg/actuation HFA aerosol inhaler 2 puff inhalation QID Qty: 8.5 0RF docusate sodium [Colace] 100 mg capsule 100 mg PO DAILY propranolol 60 mg capsule,extended release 24 hr 60 mg PO BEDTIME Qty: 90 3RF cholecalciferol (vitamin D3) 50 mcg (2,000 unit) capsule 50 mcg PO DAILY Referrals: [facility] Gastroenterology Services [Provider Group] (Call to establish and follow up with a GI specialist. ) Bj Mane MD [Primary Care Provider] - Stand Alone Forms: Work/School Release Interventions: ED Discharge Assessment Last Done: 09/29/24 16:17 Discharge Date/Time: 09/29/24 16:17 Print Language: Setswana
[2024-09-29 13:14] LABS: MANUAL DIFF FLAG NO
[2024-09-29 13:16] LABS: Appearance Urine Clear; Color Urine Yellow; Glucose Urine UA 100 mg/dL (Negative); Leukocyte Esterase Urine Negative (Negative); Nitrite Urine Negative (Negative); Specific Gravity - Urine 1.025 (1.005-1.025); Urine Blood Negative (Negative); Urine Ketones Negative (Negative); Urine Protein Negative (Neg-Trace)
[2024-09-29 13:19] LABS: Bacteria Urine Trace (None Seen); Hyaline Casts Urine 0-2 /LPF (0-2); RBC Urine 0-2 /HPF (0-2); WBC Urine 0-5 /HPF (0-5)
[2024-09-29 13:20] LABS: Basophils Absolute Auto 0.1 X10*3/uL (0.0-0.2); Basophils Percent Auto 0.6 % (0-2); Eosinophils Absolute Auto 0.1 X10*3/uL (0.0-0.4); Eosinophils Percent Auto 1.2 % (0-4); Hematocrit 43.1 % (37.0-47.0); Hemoglobin 14.4 g/dl (12.0-16.0); Imm Gran Pct Auto 0.9 % (0.0-0.4); Lymphocytes Absolute Auto 3.4 X10*3/uL (1.2-4.9); Lymphocytes Percent Auto 30.6 % (20-40); Mean Corpuscular HGB Conc 33.4 g/dl (31.0-35.0); Mean Corpuscular Hemoglobin 29.1 pg (27.0-33.0); Mean Corpuscular Volume 87.1 fL (80.0-98.0); Mean Platelet Volume 12.7 fL (9.4-12.3); Monocytes Absolute Auto 0.9 X10*3/uL (0.1-1.2); Monocytes Percent Auto 8.1 % (2-11); Neutrophils Absolute Auto 6.6 x10*3/uL (2.0-8.3); Neutrophils Percent Auto 58.6 % (45-73); Platelet Count 268 X10*3/uL (160-400); Red Blood Count 4.95 X10*6/uL (4.20-5.50); Red Cell Distribution Width 13.2 % (11.0-16.0); White Blood Count 11.2 X10*3/uL (4.8-10.8)
[2024-09-29 13:31] LABS: Alanine Aminotransferase 32 U/L (0-31); Albumin Level 4.4 g/dL (3.5-5.0); Alkaline Phosphatase 89 U/L (39-117); Anion Gap 9 (12-20); Aspartate Amino Transferase 22 U/L (5-31); Bilirubin Direct 0.1 mg/dL (0.0-0.5); Bilirubin Total 0.4 mg/dL (0.0-1.0); Blood Urea Nitrogen 14 mg/dL (9-16); Calcium 9.5 mg/dL (8.4-10.2); Carbon Dioxide 25 mmol/L (22-29); Chloride 109 mmol/L (96-108); Creatinine Clr Calc Pharmacy 84.5; Estimated Glomerular Filt Rate > 60; Glucose Random 90 mg/dL (60-115); Lipase 15 U/L (8-78); Magnesium 2.3 mg/dL (1.6-2.6); Potassium 4.3 mmol/L (3.3-5.1); Sodium 139 mmol/L (135-145); Total Protein 7.5 g/dL (6.5-8.0)
[2024-09-29 13:39] LABS: HCG Quantitative < 2 mIU/mL
[2024-09-29 14:16] VITALS: BP 151/81; PULSE 74; RESP 16
[2024-09-29] MEDS: iohexoL 350 MG/ML 100 ML INFUS..BTL IV (14:24)
[2024-09-29] MEDS: ondansetron HCL 4 MG/2 ML VIAL IVPUSH (14:56)
[2024-09-29] MEDS: Ketorolac Tromethamine 15 MG/ML VIAL IVPUSH (15:30)
[2024-09-29 16:17] VITALS: BP 151/81; PULSE 74; RESP 16; TEMP -17.7; TEMP 0
--- OUTSIDE RECORDS SUMMARY | 2024-09-29 17:03 | XMS_ITS | Clinical Summary ---
Author Organization [facility] it Address [address] [place] [address] Care Team Providers Care Professor Of Psychology Name Role Phone Vahe Carrizales MD Primary Care Provider [phone] Allergies Active Allergy Reactions Criticality Noted Date [...] of cervix (uteri) Dermatophytosis of nail 11/21/2005 DX:[place] tophytosis of nail Other acne 11/21/2005 DX:Other [...] Influencers of Health Screening 05/22/2022 COVID-19 Vaccine ( - 2023-2 5 season) 2024 07/24/2020 Cholesterol Screening (Lipid Panel) 04/22/2024 04/22/2019 Cervical Cancer Screening: P ap Smear 12/21/2024 12/21/2021 Influenza Vaccine (Season Ended) 2025 04/22/2019 DTaP,Tdap,and Td Vaccines (3 - Td or [...] Recently Relevant to Health Maintenance Care Teams Professor Of Psychology Relationship Specialty Start Date End Date Vahe Carrizales MD [facility] - General 04/22/19
--- OUTSIDE RECORDS SUMMARY | 2024-09-29 17:03 | XMS_ITS | Clinical Summary ---
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
== END 2024-09-29 16:17 | disposition home or self-care (01) ==
PROVIDERS: Physician Assistant; Emergency Provider Emergency Medicine; PCP Internal Medicine
DX: R10.2 Pelvic and perineal pain (principal); R11.2 Nausea with vomiting, unspecified; R10.31 Right lower quadrant pain; Z79.899 Other long term (current) drug therapy
CPT/HCPCS: 36415; 74177; 80053; 81001; 82248; 83690; 83735; 84702; 85025; 96374; 96375; 99212; 99284; J1885; J2405; Q9967

== ENCOUNTER → 2024-09-29 14:18 | Outpatient (BNV) | payer OTHER, SELFPAY | PROVIDERS: Emergency Provider Emergency Medicine; PCP Internal Medicine; Visit Provider Radiology Diagnostic Radiology | DX: K42.9 Umbilical hernia without obstruction or gangrene (principal); R16.0 Hepatomegaly, not elsewhere classified | CPT/HCPCS: 74177 ==

== ENCOUNTER 2024-10-05 08:14 | Outpatient (AMB) | payer OTHER, SELFPAY ==
[2024-10-05 08:48] VITALS: BP 126/78; PULSE 62; RESP 16; TEMP 36.5; O2SAT 99; BMI 33.5
--- NOTE | 2024-10-05 08:48 | MHC.PC.OV ---
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 Accompanied by: Self / Same As Patient Allergies Bleach (Sodium Hypochlorite) Allergy (Severe, Verified 10/05/24 08:50) Anaphylaxis latex Allergy (Intermediate, Verified 10/05/24 08:50) Rash peanut Allergy (Intermediate, Verified 10/05/24 08:50) Rash Tobacco use date assessed: 10/05/24 Dental Screening Dental Screen Date: 07/09/24 [facility] Medical History Breast cancer screening by mammogram Abdominal pain Annual physical exam Colon cancer screening Palpitations TIA (transient ischemic attack) Blood pressure elevated without history of HTN Endometriosis Hypercholesterolemia Reactive airway disease COVID-19 virus infection Surgical History H/O hysterectomy for benign disease History of ear surgery H/O tubal ligation History of tonsillectomy Family History Mother No problems noted. Father No problems noted. Sister No problems noted. Sister No problems noted. Sister No problems noted. Sister No problems noted. Brother No problems noted. Son No problems noted. Son No problems noted. Daughter No problems noted. Paternal Grandmother Myocardial infarct Paternal Aunt Colon cancer Breast cancer Paternal Uncle Substance abuse Myocardial infarct Social History Housing: House Alcohol intake: current Alcohol intake frequency: holidays/special occasions only Alcohol type: wine Comment: holidays 2-3 drinks 2 days weekend 1-2 drinks Patient Tobacco Use Status: Never used Tobacco e-Cigarette/Vaping Use: Never Used Second Hand Smoke Exposure: No service: No Current occupational status: employed Cognitive needs: No Hearing needs: No Vision needs: Yes (glasses) Questionnaire Thrive Questionnaire Date Thrive assessed: 10/05/24 I am a: Patient What is your living situation today?: I choose not to answer this question Within the past 12 months, did the food you bought not last and you didn't have the money to get more?: I choose not to answer this question Within the past 12 months, did you worry whether your food would run out before you got money to buy more?: I choose not to answer this question Do you have trouble paying for medicines?: I choose not to answer this question Do you have trouble getting transportation to medical appointments?: I choose not to answer this question Do you have trouble paying your heating and electricity bill?: I choose not to answer this question Do you have trouble taking care of your child, family member or friend?: I choose not to answer this question Do you have trouble with day-to-day activities such as bathing, preparing meals, shopping, managing finances, etc.?: I choose not to answer this question Are you currently unemployed and looking for a job?: I choose not to answer this question Are you interested in more education?: I choose not to answer this question Please select the resources that you would like help with: None Currently or been in a relationship where the following occur: I choose not to answer THRIVE Score: 0 AUDIT C Alcohol Use Questionnaire (AUDIT-C) 1. How often do you have a drink containing alcohol?: Monthly or less 2. How many drinks containing alcohol do you have on a typical day when you are drinking?: 1 or 2 3. How often do you have six or more drinks on one occasion?: Never Total Score: 1 Score Reviewed/Action Taken: No PINKY-7 AMB Questionnaire PINKY-7 Date PINKY - 7 assessed: 07/09/24 Source: Developed by Drs. Chandu Root, Mckayla Escobar, Osbaldo Jiang and colleagues, with an educational waleska from [employer]. Physical exam (Primary Care) Vital Signs: Last Vital Signs Temp 97.7 F 10/05/24 08:48 Pulse 62 10/05/24 08:48 Resp 16 10/05/24 08:48 BP 126/78 10/05/24 08:48 Pulse Ox 99 10/05/24 08:48 Oxygen Delivery Method Room Air 10/05/24 08:48 BMI result Body Mass Index 33.5 Tobacco/Smoking Status: Tobacco use Status Tobacco use date assessed 10/05/24 10/05/24 08:56 Patient Tobacco Use Status Never used Tobacco 10/05/24 08:49 e-Cigarette/Vaping Use Never Used 10/05/24 08:49 Thrive Assessment: Date of Thrive Assessment Date Thrive assessed 10/05/24 10/05/24 08:56 Currently or been in a relationship where the following occur: I choose not to answer Const General: alert; No acute distress Eyes Conjunctivae: conjunctivae normal Resp Auscultation: clear to auscultation bilaterally Cardio Rate: regular rate Rhythm: regular rhythm GI Inspection: Yes normal to inspection Extrem General: Yes normal to inspection and No edema Coding Level of Care Code Est Pt Level 4 (42266) Diagnoses Right lower quadrant abdominal tenderness with rebound tenderness R10.823 Presence of rebound: present Umbilical hernia K42.9 Hepatic steatosis K76.0 Diastasis recti M62.08 Gastroenteritis K52.9 Assessment & Plan Assessment & Plan (1) RLQ abdominal tenderness: Code(s): R10.813 - Right lower quadrant abdominal tenderness Category: Medical Qualifiers: Presence of rebound: present Qualified Code(s): R10.823 - Right lower quadrant rebound abdominal tenderness Plan: CT scan negative (2) Umbilical hernia: Code(s): K42.9 - Umbilical hernia without obstruction or gangrene Category: Medical Plan: Discussed on avoiding heavy lifting (3) Hepatic steatosis: Code(s): K76.0 - Fatty (change of) liver, not elsewhere classified Category: Medical Plan: Low-fat diet and exercise (4) Diastasis recti: Code(s): M62.08 - Separation of muscle (nontraumatic), other site Category: Medical (5) Gastroenteritis: Code(s): K52.9 - Noninfective gastroenteritis and colitis, unspecified Category: Medical Plan: PAtient is reassured and advised to take bland diet, keep well hydrated if there are new things to call. Plan History of Present Illness Health Maintenance - Advised to follow a low-fat diet and engage in regular exercise - Monitoring of hepatic steatosis with lifestyle modification recommendations - Regular health check-ups for ongoing management of hypertension, hypercholesterolemia, and reactive airway disease - Routine updates on blood work to monitor white blood cell count and liver function Social History - Current diet is restricted due to abdominal discomfort, primarily consuming soup and bread - Avoids highly flavored and sweet foods, as well as coffee, due to current symptoms and discomfort - No issues reported with urination - The patient has a physically limiting umbilical hernia Review of Systems - Gastrointestinal: Reports constant lower abdominal pain, change in stool color to layton, and discomfort before and during bowel movements; denies blood in the stool and watery stools - Urinary: Denies difficulties with urination Physical Exam - Abdomen- Pressing on the lower abdomen and around the umbilicus reveals localized tenderness; abdominal hernia noted on exam - Musculoskeletal- Presence of diastasis recti Results - CT scan: Negative for appendiceal involvement, identifying umbilical hernia, hepatic steatosis, and diastasis recti - Laboratory tests: White blood cell count slightly elevated; normal urinary analysis Plan Patient was informed and verbally consented to the use of an ambient scribe for clinic note documentation during this visit. Discussion Notes During our consultation, we discussed the likely cause of the abdominal pain being gastrointestinal irritation, likely influenced by the patient's dietary changes and historical interventions such as hernia management. We reviewed the conservative management plan, emphasizing the avoidance of exacerbating factors like heavy lifting and dietary changes. Benefits and limitations of these interventions were considered, with the understanding that surgical intervention for the hernia would be a consideration only if necessary. The patient was advised on hydration importance to avoid complications and was informed about signs warranting immediate care return. Follow-up was scheduled to monitor her progress and adjust care as necessary. Patient Instructions - Follow a bland diet avoiding spicy, rich, and highly flavored foods - Increase fluid intake to prevent dehydration - Monitor symptoms and note any changes in pain or stool characteristics - Avoid heavy lifting and strenuous physical activity - Contact my office with any new or worsening symptoms or if they persist despite the current management plan
== END 2024-10-05 10:26 | disposition home or self-care (01) ==
LOC: HO.HMCH 08:14
PROVIDERS: PCP Internal Medicine; Visit Provider Internal Medicine
DX: R10.823 Right lower quadrant rebound abdominal tenderness (principal); K42.9 Umbilical hernia without obstruction or gangrene; K76.0 Fatty (change of) liver, not elsewhere classified; M62.08 Separation of muscle (nontraumatic), other site; K52.9 Noninfective gastroenteritis and colitis, unspecified

== ENCOUNTER → 2024-10-05 08:14 | Outpatient (BNVA) | payer OTHER, SELFPAY | PROVIDERS: PCP Internal Medicine; Visit Provider Internal Medicine | DX: R10.823 Right lower quadrant rebound abdominal tenderness (principal); K42.9 Umbilical hernia without obstruction or gangrene; K76.0 Fatty (change of) liver, not elsewhere classified; M62.08 Separation of muscle (nontraumatic), other site; K52.9 Noninfective gastroenteritis and colitis, unspecified | CPT/HCPCS: 99212 ==

== ENCOUNTER 2025-04-25 13:54 | Outpatient (REF) | payer OTHER, SELFPAY ==
--- NOTE | ~2025-04-25 | XR_ITS ---
EXAMINATION: XR CHEST 2 VIEWS HISTORY: R05.9 - Cough, unspecified COMPARISON: There are no prior studies available for comparison. FINDINGS: PA and lateral views of the chest are submitted. The lungs are expanded and clear. There is no pleural effusion, pneumothorax, or pulmonary vascular congestion. The heart is normal in size. There is mild degenerative disc disease of the spine. XR/XR chest 2V IMPRESSION: Clear lungs. Electronically signed by: Chandu Rucker MD 04/25/2025 03:22 PM [facility]
== END 2025-04-25 13:55 | disposition home or self-care (01) ==
LOC: HO.XRAY 13:54
PROVIDERS: PCP Internal Medicine; Visit Provider Internal Medicine
DX: I10 Essential (primary) hypertension (principal); J45.901 Unspecified asthma with (acute) exacerbation; R73.02 Impaired glucose tolerance (oral); E66.9 Obesity, unspecified; E78.00 Pure hypercholesterolemia, unspecified; K76.0 Fatty (change of) liver, not elsewhere classified
CPT/HCPCS: 71046; 96127; 99212

== ENCOUNTER 2025-04-25 13:54 | Outpatient (AMB) | payer OTHER, SELFPAY ==
[2025-04-25 13:59] VITALS: BP 124/84; PULSE 91; TEMP 36.2; O2SAT 99; BMI 32.6
--- NOTE | 2025-04-25 13:59 | MHC.PC.OV ---
Vital Signs 04/25/25 13:59 Height 5 ft Weight 167 lb 2 oz BMI 32.6 BP 124/84 Blood Pressure Location Lt brachial Position Sitting Pulse 91 Pulse Source Pulse Oximeter Temp 97.1 F Temp Source Temporal Artery Scan Pulse Oximetry (%) 99 Oxygen Delivery Method Room Air Intake Visit Reasons: 6 mth f/u cholesterol Allergies Bleach (Sodium Hypochlorite) Allergy (Severe, Verified 04/25/25 14:10) Anaphylaxis latex Allergy (Intermediate, Verified 04/25/25 14:10) Rash peanut Allergy (Intermediate, Verified 04/25/25 14:10) Rash Tobacco use date assessed: 04/25/25 Dental Screening Dental Screen Date: 04/25/25 Did you have a dental visit in the last 12 months?: Yes Did you have a dental problem in the last 6 months where you did not have access to dental care?: No Was dental information given to patient?: Patient has dentist HPI 6 mth f/u cholesterol HPI Details exposed to bleach 04/06- ER visit 04/08/2025- steroids states better but still couging- chest xray negative, PFSH Medical History Breast cancer screening by mammogram Abdominal pain Annual physical exam Colon cancer screening Palpitations TIA (transient ischemic attack) Blood pressure elevated without history of HTN Endometriosis Hypercholesterolemia Reactive airway disease COVID-19 virus infection Surgical History H/O hysterectomy for benign disease History of ear surgery H/O tubal ligation History of tonsillectomy Family History Mother No problems noted. Father No problems noted. Sister No problems noted. Sister No problems noted. Sister No problems noted. Sister No problems noted. Brother No problems noted. Son No problems noted. Son No problems noted. Daughter No problems noted. Paternal Grandmother Myocardial infarct Paternal Aunt Colon cancer Breast cancer Paternal Uncle Substance abuse Myocardial infarct Social History Housing: House Alcohol intake: current Alcohol intake frequency: holidays/special occasions only Alcohol type: wine Comment: holidays 2-3 drinks 2 days weekend 1-2 drinks Patient Tobacco Use Status: Never used Tobacco e-Cigarette/Vaping Use: Never Used Second Hand Smoke Exposure: No service: No Current occupational status: employed Cognitive needs: No Hearing needs: No Vision needs: Yes (glasses) Questionnaire PHQ-9 Over the last 2 weeks, how often have you been bothered by any of the following problems? 1. Little interest or pleasure in doing things: not at all 2. Feeling down, depressed, or hopeless: not at all 3. Trouble falling or staying asleep, or sleeping too much: not at all 4. Feeling tired or having little energy: not at all 5. Poor appetite or overeating: not at all 6. Feeling bad about yourself - or that you are a failure or have let yourself or your family down: not at all 7. Trouble concentrating on things, such as reading the newspaper or watching television: not at all 8. Moving or speaking so slowly that other people could have noticed. Or the opposite - being so fidgety or restless that you have been moving around a lot more than usual: not at all 9. Thoughts that you would be better off or of hurting yourself in some way: not at all Total score: 0 Source: Developed by Drs. Chandu Root, Mckayla Escobar, Osbaldo Jiang and colleagues, with an educational waleska from [employer]. Thrive Questionnaire Date Thrive assessed: 10/05/24 I am a: Patient What is your living situation today?: I have a steady place to live Within the past 12 months, did the food you bought not last and you didn't have the money to get more?: I choose not to answer this question Within the past 12 months, did you worry whether your food would run out before you got money to buy more?: I choose not to answer this question Do you have trouble paying for medicines?: I choose not to answer this question Do you have trouble getting transportation to medical appointments?: I choose not to answer this question Do you have trouble paying your heating and electricity bill?: I choose not to answer this question Do you have trouble taking care of your child, family member or friend?: I choose not to answer this question Do you have trouble with day-to-day activities such as bathing, preparing meals, shopping, managing finances, etc.?: I choose not to answer this question Are you currently unemployed and looking for a job?: I choose not to answer this question Are you interested in more education?: I choose not to answer this question Please select the resources that you would like help with: None Currently or been in a relationship where the following occur: I choose not to answer THRIVE Score: 0 AUDIT C Alcohol Use Questionnaire (AUDIT-C) 1. How often do you have a drink containing alcohol?: Monthly or less 2. How many drinks containing alcohol do you have on a typical day when you are drinking?: 1 or 2 3. How often do you have six or more drinks on one occasion?: Never Total Score: 1 PINKY-7 AMB Questionnaire PINKY-7 Date PINKY - 7 assessed: 07/09/24 Feeling nervous, anxious, or on edge: 0 = Not at all Not being able to stop or control worryin = Not at all Worrying too much about different things: 0 = Not at all Trouble relaxin = Not at all Being so restless that it is hard to sit still: 0 = Not at all Becoming easily annoyed or irritable: 0 = Not at all Feeling afraid as if something awful might happen: 0 = Not at all Total PINKY-7 score (0-4 normal; 5-9 mild; 10-14 moderate; 15-21 severe): 0 Source: Developed by Drs. Chandu Root, Mckayla Escobar, Osbaldo Jiang and colleagues, with an educational waleska from [employer]. Physical exam (Primary Care) Vital Signs: Last Vital Signs Temp 97.1 F 04/25/25 13:59 Pulse 91 04/25/25 13:59 BP 124/84 04/25/25 13:59 Pulse Ox 99 04/25/25 13:59 Oxygen Delivery Method Room Air 04/25/25 13:59 BMI result Body Mass Index 32.6 Tobacco/Smoking Status: Tobacco use Status Tobacco use date assessed 04/25/25 04/25/25 14:02 Patient Tobacco Use Status Never used Tobacco 04/25/25 14:02 e-Cigarette/Vaping Use Never Used 04/25/25 14:02 PHQ-9: PHQ-9 Score PHQ-9: Total score 0 04/25/25 14:40 Thrive Assessment: Date of Thrive Assessment Date Thrive assessed 10/05/24 04/25/25 14:02 Currently or been in a relationship where the following occur: I choose not to answer Const General: alert; No acute distress Eyes Conjunctivae: conjunctivae normal Resp Other: basal crackles, minimal wheezing Cardio Rate: regular rate Rhythm: regular rhythm GI Inspection: Yes normal to inspection Extrem General: Yes normal to inspection and No edema Coding Level of Care Code Est Pt Level 4 (87233) Diagnoses Obesity (BMI 30-39.9) E66.9 Impaired glucose tolerance R73.02 Primary hypertension I10 Hypertension type: primary hypertension Hypercholesterolemia E78.00 Hepatic steatosis K76.0 Cough R05.9 Assessment & Plan Assessment & Plan (1) Obesity (BMI 30-39.9): Code(s): E66.9 - Obesity, unspecified Category: Medical Plan: Diet and exercise (2) Impaired glucose tolerance: Code(s): R73.02 - Impaired glucose tolerance (oral) Category: Medical Plan: Decrease the amount of carbohydrate intake, pasta, bread, rice and potatoes are all sugar and that is aside from all the sweet stuff, remember that fruits are good but they are Sweet also. (3) Hypertension: Code(s): I10 - Essential (primary) hypertension Category: Medical Qualifiers: Hypertension type: primary hypertension Qualified Code(s): I10 - Essential (primary) hypertension Plan: Continue with blood pressure medication. Decrease salt intake and exercise on propranolol 60 mg at bedtime (4) Hypercholesterolemia: Code(s): E78.00 - Pure hypercholesterolemia, unspecified Category: Medical Plan: Avoid fried foods, chicken skin, eggs, butter margarine, pastries and meat. Be it pork or beef they have a lot of cholesterol LDL goal of less than 130 and triglyceride of less than 150 (5) Hepatic steatosis: Code(s): K76.0 - Fatty (change of) liver, not elsewhere classified Category: Medical Plan: Low-fat diet (6) Cough: Code(s): R05.9 - Cough, unspecified Category: Medical Plan History of Present Illness The patient is a 50-year-old obese female presenting for a scheduled follow-up visit and evaluation of an acute cough. She reports an allergy to bleach and had an exposure on the and of the month, which caused breathing problems. The patient went to the emergency room on 11/06, where she received a nebulizer treatment, a chest X-ray was performed, and she was given a 5-day course of prednisone. While she felt slightly better, she continues to have a persistent cough and coughing fits that are severe enough to cause urinary incontinence. Her past medical history is significant for hypercholesterolemia, reactive airway disease, hypertension, impaired glucose tolerance, and hepatic steatosis. Her last visit was in September 2024. Recent blood work from September 29 showed a normal blood count, electrolytes, and normal renal and liver function. However, lab results also indicated elevated cholesterol and low vitamin D. Her health screenings are up-to-date, with a mammogram in August and a colonoscopy in 2021. Health Maintenance The patient is advised to follow up in 3 months. Advised to ensure adequate water intake. Social History - Reports an occupational or program-related exposure to bleach. - Diet and exercise have been previously discussed. Review of Systems - Constitutional: Denies fever. - Respiratory: Reports persistent cough, coughing fits, and difficulty breathing after a known bleach exposure. - HEENT: Denies ear pain. - Genitourinary: Reports stress urinary incontinence associated with coughing fits. Physical Exam - Vitals: Oxygen saturation is good. - HEENT: Oropharynx was inspected. - Chest: On palpation, elicited a little pressure but no pain. - Cardiovascular: Heart auscultated. - Lungs: Clear to auscultation with minimal wheezing; cough produced on deep inspiration. Results - Labs (September 29): Normal blood count, electrolytes, renal function, and liver function. - Labs (September 29): Cholesterol was elevated and vitamin D was low. - Imaging (ER visit 11/06): A chest X-ray was performed, results not detailed. Plan Patient was informed and verbally consented to the use of an ambient scribe for clinic note documentation during this visit. 1. Acute Cough The patient presents with a persistent cough following a bleach exposure, likely an exacerbation of her reactive airway disease. Although there is not much wheezing on exam, the cough is triggered by deep inspiration. A chest X-ray will be ordered. A tapering course of prednisone and an antibiotic will be prescribed. The patient was advised she can use [id number] Delsym at night for cough suppression. The patient will continue to use her own inhalers as needed. 2. Hypertension Continue propranolol 60 mg at bedtime. 3. Hypercholesterolemia Continue to target an LDL goal of less than 130 and triglycerides of less than 150. Reinforced the importance of a low-fat diet. Discussion Notes I explained to the patient that even though I did not hear much wheezing, I was concerned about her persistent cough, especially since it is triggered by deep breaths, which is likely related to her recent bleach exposure. To further evaluate this, I requested a chest X-ray. I prescribed a course of steroids with a tapering dose, an antibiotic, and explained that she does not have an allergy to antibiotics. For symptomatic relief of the cough, particularly to help with sleep, I suggested the [id number] medication Delsym. We confirmed she has her inhalers at home. I informed her that the prescriptions were sent to her pharmacy and that I would call if the X-ray showed any issues. A follow-up appointment was scheduled for three months, and she was advised to contact me if her symptoms do not improve. Patient Instructions - Please get a chest X-ray done. - Your prescriptions have been sent to the [facility] in [place]. - Take the prednisone tablets with food as directed: 4 tablets together once a day for 2 days, then 3 tablets for 2 days, then 2 tablets for 2 days, and finally 1 tablet for 2 days. - Take the antibiotic as prescribed. - You can use an [id number] cough medicine called Delsym at night to help you sleep better. - You do not need a new prescription for an inhaler. - Make sure to drink plenty of water. - Please let the office know if you are not getting better. - Your next follow-up appointment is in three months. Orders: Orders XR chest 2V Today R05.9 - Cough, unspecified Medications: New azithromycin (Zithromax) For 250 mg dose pack: take 500 mg today (day 1), then 250 mg for 4 days (days 2-5) PO 6 tabs 0RF R05.9 - Cough, unspecified prednisone 4 tabs QD x 2 days then 3 tabs QD x 2 days then 2 tabs Qd x 2 days then 1 tab QD x 2 days PO daily; 20 tabs 0RF J45.909 - Unspecified asthma, uncomplicated, R05.9 - Cough, unspecified
== END 2025-04-25 14:48 | disposition home or self-care (01) ==
LOC: HO.HMCH 13:54
PROVIDERS: PCP Internal Medicine; Visit Provider Internal Medicine
DX: R73.02 Impaired glucose tolerance (oral) (principal); I10 Essential (primary) hypertension; E66.9 Obesity, unspecified; Z68.32 Body mass index [BMI] 32.0-32.9, adult; E78.00 Pure hypercholesterolemia, unspecified; K76.0 Fatty (change of) liver, not elsewhere classified; R05.9 Cough, unspecified

== ENCOUNTER → 2025-04-25 15:02 | Outpatient (BNV) | payer OTHER, SELFPAY | PROVIDERS: PCP Internal Medicine; Visit Provider Radiology Diagnostic Radiology | DX: R05.9 Cough, unspecified (principal) | CPT/HCPCS: 71046 ==